=== PATIENT | male | born 1945 | race Caucasian/White ===

== ENCOUNTER 2022-02-27 08:29 | Emergency (ER) | payer MEDICARE, MEDICAID ==
[~2022-02-27] VITALS: Ht 175.3 cm; Wt 65.9 kg
[~2022-02-27 08:29] MED LIST: AZIT250T PO; FLUT16SP2 BOTHNARES
[2022-02-27 08:36] VITALS: BP 142/67
[2022-02-27] MEDS ORDERED: LIDOcaine 1% W/epiNEPHrine 1:200,000 10ml vial IJ ONE (09:10)
[2022-02-27] MEDS ORDERED: LIDOcaine 1% W/epiNEPHrine 1:100,000 20ml vial IJ ONE (09:20)
== END 2022-02-27 10:17 | disposition home or self-care (01) ==
LOC: ER 08:29
DX: L02.414 Cutaneous abscess of left upper limb (principal); Z79.2 Long term (current) use of antibiotics; Z79.899 Other long term (current) drug therapy
CPT/HCPCS: 10060; 99282; A6449

== ENCOUNTER 2023-11-02 09:24 | Inpatient (IN) | payer OTHER, MEDICARE, MEDICAID ==
[~2023-11-02] VITALS: Ht 172.7 cm; Wt 57.5 kg
[~2023-11-02 09:24] MED LIST changes: +ATEN50TA41 PO; -AZIT250T PO; +ESCI5TAB17 PO; -FLUT16SP2 BOTHNARES; +HYDR12.55 PO; +LORA-268 PO; +POTA10CA85 PO
[2023-11-02 11:49] LABS: BASOPHILS # (AUTO) 0.1 X10'3 (0-0.2); BASOPHILS % (AUTO) 0.7 % (0-1); EOSINOPHILS % (AUTO) 0 % (0-6); HEMATOCRIT 46.2 % (42.0-52.0); HEMOGLOBIN 15.7 g/dl (14.0-17.9); LYMPHOCYTES # (AUTO) 1.5 X10'3 (1.1-4.8); LYMPHOCYTES % (AUTO) 20.3 % (21-51); MEAN CORPUSCULAR HEMOGLOBIN 29.1 PG (27.0-31.0); MEAN CORPUSCULAR VOLUME 85.6 FL (78-98); MEAN PLATELET VOLUME 8.1 FL (7.4-10.4); MONOCYTES # (AUTO) 0.9 X10'3 (0-0.9); MONOCYTES % (AUTO) 12.8 % (2-12); NEUTROPHILS # (AUTO) 4.9 X10'3 (1.8-7.7); NEUTROPHILS % (AUTO) 66.2 % (42-75); PLATELET COUNT 283 X10'3 (140-440); RED CELL DISTRIBUTION WIDTH 14.6 % (11.5-14.5); WHITE BLOOD COUNT 7.4 X10'3 (4.5-11.0)
[2023-11-02 11:55] LABS: ALANINE AMINOTRANSFERASE 32 U/L (12-78); ALBUMIN 3.9 G/DL (3.4-5.0); ALBUMIN/GLOBULIN RATIO 0.9 (1.1-1.5); ALKALINE PHOSPHATASE 65 IU/L (46-116); ANION GAP 10 (8-16); ASPARTATE AMINO TRANSFERASE 13 U/L (10-37); BILIRUBIN,TOTAL 0.4 MG/DL (0.1-1.0); BLOOD UREA NITROGEN 31 MG/DL (7-18); BUN/CREATININE RATIO 22.1 (10.0-20.0); CALCIUM 8.6 MG/DL (8.5-10.1); CHLORIDE 99 MMOL/L (99-107); GLUCOSE 117 MG/DL (70-104); POTASSIUM 3.8 MMOL/L (3.5-5.1); SODIUM 137 MMOL/L (135-145); TOTAL CARBON DIOXIDE 27.7 MMOL/L (24-32); TOTAL PROTEIN 8.2 G/DL (6.4-8.2); eCRCL 41 ML/MIN; eGFR 49 ML/MIN
[2023-11-02 11:56] LABS: PROTHROMBIN TIME 10.3 SECONDS (9.0-12.0)
[2023-11-02 12:14] LABS: APTT 26 SECONDS (22-32)
[2023-11-02 13:06] LABS: BILIRUBIN,URINE NEGATIVE (Neg); CLARITY,URINE SLIGHTLY CLOUDY (Clear); COLOR,URINE YELLOW (Yellow); GLUCOSE, URINE NEGATIVE (Neg); KETONES,URINE NEGATIVE (Neg); LEUKOCYTE ESTERASE ,URINE NEGATIVE (Neg); NITRITES, URINE NEGATIVE (Neg); OCCULT BLOOD,URINE MODERATE (Neg); PROTEIN,URINE TRACE mg/dl (Neg); UROBILINOGEN,URINE 0.2 E.U/dL (0.2-1.0)
[2023-11-02 13:25] LABS: UA COLLECTION TYPE CLN CATCH MIDSTREAM
[2023-11-02 13:26] LABS: OCCULT BLOOD STOOL POSITIVE (Neg)
[2023-11-02 13:27] LABS: BACTERIA,URINE 1+ /HPF (Neg); COARSE GRANULAR CAST 0-3 /LPF (NEGATIVE); HYALINE CASTS 0-3 /LPF (NEGATIVE); MUCUS STRANDS NONE SEEN /LPF (Neg); RBC,URINE 0-2 /HPF (0-2); SQUAMOUS EPITHELIAL CELL,UR FEW /LPF (FEW); WBC,URINE 0-4 /HPF (0-4)
[2023-11-02] MEDS ORDERED: acetaminophen 325mg tablet PO PRN ×2 (13:50)
[2023-11-02] MEDS ORDERED: ondansetron/PF 4mg/2ml inj IV PRN (13:50)
[2023-11-02] MEDS ORDERED: potassium Cl 40MEQ/1/2NS 520ml 520 ML IV PRN (13:50)
[2023-11-02] MEDS ORDERED: magnesium 4gm in 100ml NS 100 ML IV PRN (13:50)
[2023-11-02] MEDS ORDERED: HYDROcodone/acetaminophen 5mg/325mg tablet PO PRN (13:50)
[2023-11-02] MEDS ORDERED: morphine 2 MG/ML inj. syringe IV PRN ×2 (13:50)
[2023-11-02] MEDS ORDERED: magnesium 2GM in 50ml NS 50 ML IV PRN (13:50)
[2023-11-02] MEDS ORDERED: HYDROcodone/acetaminophen 10/325mg tab PO PRN (13:50)
[2023-11-02] MEDS ORDERED: magnesium Cl slow-release 64mg tablet PO PRN (13:50)
[2023-11-02] MEDS: normal saline 1000ml 1,000 ML IV SCH (14:44)
[2023-11-02] MEDS: pantoprazole 40MG/NS 100ML BAG 100 ML IV SCH (16:31)
[2023-11-02] MEDS: nicotine 14mg patch - 24hr TD SCH (17:59)
[2023-11-02 19:21] VITALS: BP 162/91; PULSE 61; RESP 17; TEMP 97.1; O2SAT 99
[2023-11-02 20:30] VITALS: RESP 17
[2023-11-02 22:00] VITALS: BP 154/87; PULSE 64; RESP 16; TEMP 97.6; O2SAT 97
[2023-11-03] VITALS (11 sets, daily range): BP systolic 118–165; BP diastolic 65–87; PULSE 43–74; RESP 9–17; TEMP 97.4–98.6; O2SAT 93–98
[2023-11-03 07:47] LABS: BASOPHILS % (AUTO) 0.8 % (0-1); EOSINOPHILS % (AUTO) 0.1 % (0-6); HEMATOCRIT 39.2 % (42.0-52.0); HEMOGLOBIN 13.3 g/dl (14.0-17.9); LYMPHOCYTES # (AUTO) 1.3 X10'3 (1.1-4.8); LYMPHOCYTES % (AUTO) 24.8 % (21-51); MEAN CORPUSCULAR VOLUME 85.2 FL (78-98); MEAN PLATELET VOLUME 7.6 FL (7.4-10.4); MONOCYTES # (AUTO) 0.7 X10'3 (0-0.9); NEUTROPHILS # (AUTO) 3.2 X10'3 (1.8-7.7); NEUTROPHILS % (AUTO) 61.3 % (42-75); PLATELET COUNT 251 X10'3 (140-440); RED CELL DISTRIBUTION WIDTH 14.7 % (11.5-14.5); WHITE BLOOD COUNT 5.3 X10'3 (4.5-11.0)
[2023-11-03 08:07] LABS: ALANINE AMINOTRANSFERASE 25 U/L (12-78); ALBUMIN 3.2 G/DL (3.4-5.0); ALKALINE PHOSPHATASE 57 IU/L (46-116); ANION GAP 9 (8-16); ASPARTATE AMINO TRANSFERASE 12 U/L (10-37); BILIRUBIN,TOTAL 0.7 MG/DL (0.1-1.0); BLOOD UREA NITROGEN 27 MG/DL (7-18); BUN/CREATININE RATIO 23.9 (10.0-20.0); CALCIUM 7.6 MG/DL (8.5-10.1); CHLORIDE 103 MMOL/L (99-107); CREATININE 1.13 MG/DL (0.60-1.10); GLUCOSE 92 MG/DL (70-104); POTASSIUM 3.5 MMOL/L (3.5-5.1); SODIUM 139 MMOL/L (135-145); TOTAL CARBON DIOXIDE 26.6 MMOL/L (24-32); TOTAL PROTEIN 6.3 G/DL (6.4-8.2); eCRCL 44 ML/MIN; eGFR 63 ML/MIN
[2023-11-03] MEDS ORDERED: LIDOcaine Viscous 15ml cup ONE (12:48)
[2023-11-03] MEDS ORDERED: fentaNYL/PF 50MCG/1 ML 2ML syringe ONE (13:21)
[2023-11-03] MEDS ORDERED: MIDAZolam 1 MG/ML 5ML VIAL ONE (13:21)
[2023-11-03 15:37] LABS: MEAN CORPUSCULAR HEMOGLOBIN 28.9 PG (27.0-31.0); MONOCYTES # (AUTO) 0.7 X10'3 (0-0.9)
[2023-11-03 15:39] LABS: BASOPHILS % (AUTO) 0.7 % (0-1); EOSINOPHILS % (AUTO) 0.1 % (0-6); HEMATOCRIT 38.3 % (42.0-52.0); HEMOGLOBIN 12.9 g/dl (14.0-17.9); LYMPHOCYTES # (AUTO) 1.8 X10'3 (1.1-4.8); LYMPHOCYTES % (AUTO) 29.8 % (21-51); MEAN CORPUSCULAR HGB CONC 33.7 g/dL (33.0-36.5); MEAN CORPUSCULAR VOLUME 85.8 FL (78-98); MEAN PLATELET VOLUME 7.6 FL (7.4-10.4); MONOCYTES % (AUTO) 12.4 % (2-12); NEUTROPHILS # (AUTO) 3.4 X10'3 (1.8-7.7); PLATELET COUNT 239 X10'3 (140-440); RED BLOOD COUNT 4.46 X10'6 (4.70-6.10); RED CELL DISTRIBUTION WIDTH 14.6 % (11.5-14.5)
[2023-11-03] MEDS: pantoprazole 40 MG vial IV ONE (15:53)
[2023-11-03] MEDS: pantoprazole 40MG/NS 100ML BAG 100 ML IV SCH (15:58)
[2023-11-04 06:49] LABS: ALANINE AMINOTRANSFERASE 16 U/L (12-78); ALBUMIN 2.9 G/DL (3.4-5.0); ALBUMIN/GLOBULIN RATIO 0.9 (1.1-1.5); ALKALINE PHOSPHATASE 44 IU/L (46-116); ANION GAP 11 (8-16); ASPARTATE AMINO TRANSFERASE 6 U/L (10-37); BILIRUBIN,TOTAL 0.8 MG/DL (0.1-1.0); BLOOD UREA NITROGEN 19 MG/DL (7-18); BUN/CREATININE RATIO 20.2 (10.0-20.0); CALCIUM 7.6 MG/DL (8.5-10.1); CHLORIDE 106 MMOL/L (99-107); CREATININE 0.94 MG/DL (0.60-1.10); GLUCOSE 91 MG/DL (70-104); POTASSIUM 3.5 MMOL/L (3.5-5.1); SODIUM 142 MMOL/L (135-145); TOTAL CARBON DIOXIDE 25.5 MMOL/L (24-32); TOTAL PROTEIN 6.2 G/DL (6.4-8.2); eCRCL 53 ML/MIN; eGFR 78 ML/MIN
[2023-11-04 06:55] LABS: BASOPHILS % (AUTO) 0.9 % (0-1); EOSINOPHILS % (AUTO) 0.8 % (0-6); HEMATOCRIT 37.5 % (42.0-52.0); HEMOGLOBIN 12.5 g/dl (14.0-17.9); LYMPHOCYTES # (AUTO) 1.6 X10'3 (1.1-4.8); LYMPHOCYTES % (AUTO) 31.2 % (21-51); MEAN CORPUSCULAR HEMOGLOBIN 28.5 PG (27.0-31.0); MEAN CORPUSCULAR HGB CONC 33.4 g/dL (33.0-36.5); MEAN CORPUSCULAR VOLUME 85.4 FL (78-98); MEAN PLATELET VOLUME 7.6 FL (7.4-10.4); MONOCYTES # (AUTO) 0.7 X10'3 (0-0.9); MONOCYTES % (AUTO) 13.3 % (2-12); NEUTROPHILS # (AUTO) 2.7 X10'3 (1.8-7.7); NEUTROPHILS % (AUTO) 53.8 % (42-75); PLATELET COUNT 229 X10'3 (140-440); RED BLOOD COUNT 4.39 X10'6 (4.70-6.10); RED CELL DISTRIBUTION WIDTH 14.6 % (11.5-14.5); WHITE BLOOD COUNT 5.1 X10'3 (4.5-11.0)
[2023-11-04 07:00] VITALS: BP 131/89; PULSE 51; RESP 16; TEMP 97.6; O2SAT 97
[2023-11-04 09:30] VITALS: RESP 20; O2SAT 97
[2023-11-04 10:00] VITALS: BP 158/90; PULSE 68; RESP 15; TEMP 98.4; O2SAT 96
[2023-11-04] MEDS: HYDROchlorothiazide 12.5mg capsule PO SCH (14:15)
[2023-11-04 17:43] LABS: HBSAG SCREEN Negative (Negative); HEP B CORE AB, IGM Negative (Negative); HEP B CORE AB, TOT Negative (Negative)
[2023-11-04 18:00] VITALS: BP 178/89; PULSE 51; RESP 15; TEMP 97.7; O2SAT 96
[2023-11-04 20:00] VITALS: RESP 15; O2SAT 96
[2023-11-04 22:00] VITALS: BP 179/88; PULSE 65; RESP 18; TEMP 98.6; O2SAT 96
[2023-11-05 06:00] VITALS: BP 169/99; PULSE 56; RESP 20; TEMP 98.7; O2SAT 99
[2023-11-05 06:58] LABS: BASOPHILS % (AUTO) 1.1 % (0-1); EOSINOPHILS # (AUTO) 0.1 X10'3 (0-0.9); EOSINOPHILS % (AUTO) 1.9 % (0-6); HEMATOCRIT 37.1 % (42.0-52.0); HEMOGLOBIN 12.8 g/dl (14.0-17.9); LYMPHOCYTES # (AUTO) 1.4 X10'3 (1.1-4.8); MEAN CORPUSCULAR HEMOGLOBIN 29.3 PG (27.0-31.0); MEAN CORPUSCULAR HGB CONC 34.4 g/dL (33.0-36.5); MEAN PLATELET VOLUME 7.8 FL (7.4-10.4); MONOCYTES # (AUTO) 0.7 X10'3 (0-0.9); MONOCYTES % (AUTO) 14.4 % (2-12); NEUTROPHILS # (AUTO) 2.4 X10'3 (1.8-7.7); NEUTROPHILS % (AUTO) 51.6 % (42-75); PLATELET COUNT 218 X10'3 (140-440); RED BLOOD COUNT 4.36 X10'6 (4.70-6.10); RED CELL DISTRIBUTION WIDTH 14.7 % (11.5-14.5); WHITE BLOOD COUNT 4.6 X10'3 (4.5-11.0)
[2023-11-05 07:44] LABS: ALANINE AMINOTRANSFERASE 19 U/L (12-78); ALKALINE PHOSPHATASE 49 IU/L (46-116); ANION GAP 7 (8-16); ASPARTATE AMINO TRANSFERASE 9 U/L (10-37); BILIRUBIN,TOTAL 0.8 MG/DL (0.1-1.0); BLOOD UREA NITROGEN 11 MG/DL (7-18); BUN/CREATININE RATIO 11.2 (10.0-20.0); CALCIUM 7.7 MG/DL (8.5-10.1); CHLORIDE 104 MMOL/L (99-107); CREATININE 0.98 MG/DL (0.60-1.10); GLUCOSE 102 MG/DL (70-104); POTASSIUM 3.3 MMOL/L (3.5-5.1); SODIUM 140 MMOL/L (135-145); TOTAL CARBON DIOXIDE 28.7 MMOL/L (24-32); eCRCL 51 ML/MIN; eGFR 74 ML/MIN
[2023-11-05 08:30] VITALS: RESP 16; O2SAT 98
[2023-11-05 10:00] VITALS: BP 142/78; PULSE 68; RESP 18; TEMP 98.3; O2SAT 99
[2023-11-05] MEDS: potassium Cl 20 mEq SR tablet PO PRN ×2 (11:12→12:48)
[2023-11-05] MEDS ORDERED: NICO-631 TD (12:01)
[2023-11-05] MEDS ORDERED: LOSA50TA64 PO (12:02)
[2023-11-05] MEDS ORDERED: PANT40TA54 PO (12:04)
== END 2023-11-05 13:45 | disposition home or self-care (01) | DRG 377 ==
LOC: ER 09:24 → ED HOLD 13:55 → EDBEDREQ 16:26 → ORTHO 4S 19:15
PROVIDERS: ADMIT Internal Medicine; ATTEND Internal Medicine
PROC: 0DB98ZX Excision of Duodenum, Via Natural or Artificial Opening Endoscopic, Diagnostic (ICD-10-PCS; principal; 2023-11-03)
PROC: 0DB68ZX Excision of Stomach, Via Natural or Artificial Opening Endoscopic, Diagnostic (ICD-10-PCS; 2023-11-03)
PROC: 0DB48ZX Excision of Esophagogastric Junction, Via Natural or Artificial Opening Endoscopic, Diagnostic (ICD-10-PCS; 2023-11-03)
DX: K29.01 Acute gastritis with bleeding (principal); I50.31 Acute diastolic (congestive) heart failure; N17.0 Acute kidney failure with tubular necrosis; I11.0 Hypertensive heart disease with heart failure; F32.A Depression, unspecified; K44.9 Diaphragmatic hernia without obstruction or gangrene; F17.210 Nicotine dependence, cigarettes, uncomplicated; K21.01 Gastro-esophageal reflux disease with esophagitis, with bleeding; F41.9 Anxiety disorder, unspecified; K26.4 Chronic or unspecified duodenal ulcer with hemorrhage; T39.395A Adverse effect of other nonsteroidal anti-inflammatory drugs [NSAID], initial encounter; K59.00 Constipation, unspecified; Y92.89 Other specified places as the place of occurrence of the external cause; Z79.899 Other long term (current) drug therapy; Z71.6 Tobacco abuse counseling
CPT/HCPCS: 36415; 43239; 71045; 74176; 80053; 81001; 82272; 85025; 85610; 85730; 86704; 86705; 86885; 86900; 86901; 87081; 87340; 93005; 97161; 97530; 99152; 99291; A4620; C9113; G0378; J2250; J3010; J7030

== ENCOUNTER 2023-11-26 08:09 | Emergency (ER) | payer OTHER, MEDICARE, MEDICAID ==
[~2023-11-26] VITALS: Ht 175.3 cm; Wt 59.0 kg
[~2023-11-26 08:09] MED LIST changes: -HYDR12.55 PO; +LOSA50TA64 PO; +NICO-631 TD; +PANT40TA54 PO; -POTA10CA85 PO
[2023-11-26 08:23] VITALS: TEMP 98.6
[2023-11-26 08:48] LABS: ALANINE AMINOTRANSFERASE 48 U/L (12-78); ALBUMIN 3.6 G/DL (3.4-5.0); ALBUMIN/GLOBULIN RATIO 0.9 (1.1-1.5); ALKALINE PHOSPHATASE 80 IU/L (46-116); ANION GAP 10 (8-16); ASPARTATE AMINO TRANSFERASE 14 U/L (10-37); BILIRUBIN,TOTAL 0.5 MG/DL (0.1-1.0); BLOOD UREA NITROGEN 20 MG/DL (7-18); BUN/CREATININE RATIO 16.4 (10.0-20.0); CALCIUM 8.8 MG/DL (8.5-10.1); CHLORIDE 103 MMOL/L (99-107); CREATININE 1.22 MG/DL (0.60-1.10); GLUCOSE 158 MG/DL (70-104); POTASSIUM 3.7 MMOL/L (3.5-5.1); SODIUM 142 MMOL/L (135-145); TOTAL PROTEIN 7.6 G/DL (6.4-8.2); eCRCL 42 ML/MIN; eGFR 57 ML/MIN
[2023-11-26 08:50] LABS: BASOPHILS # (AUTO) 0.1 X10'3 (0-0.2); BASOPHILS % (AUTO) 1.4 % (0-1); EOSINOPHILS # (AUTO) 0.5 X10'3 (0-0.9); EOSINOPHILS % (AUTO) 5.7 % (0-6); HEMATOCRIT 40.8 % (42.0-52.0); LYMPHOCYTES # (AUTO) 2.5 X10'3 (1.1-4.8); LYMPHOCYTES % (AUTO) 27.3 % (21-51); MEAN CORPUSCULAR HEMOGLOBIN 29.3 PG (27.0-31.0); MEAN CORPUSCULAR HGB CONC 34.4 g/dL (33.0-36.5); MEAN CORPUSCULAR VOLUME 85.3 FL (78-98); MEAN PLATELET VOLUME 7.5 FL (7.4-10.4); MONOCYTES # (AUTO) 0.7 X10'3 (0-0.9); MONOCYTES % (AUTO) 8.1 % (2-12); NEUTROPHILS # (AUTO) 5.3 X10'3 (1.8-7.7); NEUTROPHILS % (AUTO) 57.5 % (42-75); PLATELET COUNT 333 X10'3 (140-440); RED BLOOD COUNT 4.78 X10'6 (4.70-6.10); RED CELL DISTRIBUTION WIDTH 15.3 % (11.5-14.5); WHITE BLOOD COUNT 9.2 X10'3 (4.5-11.0)
[2023-11-26] MEDS: normal saline 1000ML IV soln IVB ONE (10:52)
[2023-11-26 12:39] VITALS: BP 199/97; PULSE 56; RESP 16; O2SAT 97
== END 2023-11-26 12:41 | disposition home or self-care (01) ==
LOC: ER 08:09
DX: J11.1 Influenza due to unidentified influenza virus with other respiratory manifestations (principal); Z20.822 Contact with and (suspected) exposure to COVID-19; I11.0 Hypertensive heart disease with heart failure; I50.9 Heart failure, unspecified; F12.90 Cannabis use, unspecified, uncomplicated; Z79.899 Other long term (current) drug therapy
CPT/HCPCS: 36415; 71045; 80053; 84484; 85025; 87502; 87503; 87811; 93005; 96360; 96361; 99285; J7030

== ENCOUNTER 2023-12-03 11:23 | Emergency (ER) | payer OTHER, MEDICARE, MEDICAID ==
[~2023-12-03] VITALS: Ht 172.7 cm; Wt 65.9 kg
[2023-12-03 11:26] VITALS: PULSE 62; RESP 16; TEMP 98; O2SAT 97
[2023-12-03 11:48] VITALS: BP 169/86
[2023-12-03] MEDS ORDERED: LOSA50TA64 PO (11:50)
== END 2023-12-03 12:04 | disposition home or self-care (01) ==
LOC: ER 11:23
DX: I11.0 Hypertensive heart disease with heart failure (principal); I50.9 Heart failure, unspecified; Z76.0 Encounter for issue of repeat prescription; F41.9 Anxiety disorder, unspecified; F12.90 Cannabis use, unspecified, uncomplicated
CPT/HCPCS: 99281

== ENCOUNTER 2024-11-14 08:18 | Inpatient (IN) | payer OTHER, MEDICARE, MEDICAID ==
[~2024-11-14] VITALS: Ht 172.7 cm; Wt 76.0 kg
[2024-11-14] MEDS ORDERED: morphine 2 MG/ML inj. syringe IV PRN (08:30)
[2024-11-14 08:51] LABS: BASOPHILS # (AUTO) 0.1 X10'3 (0-0.2); BASOPHILS % (AUTO) 0.7 % (0-1); EOSINOPHILS % (AUTO) 0.2 % (0-6); HEMATOCRIT 46.4 % (42.0-52.0); HEMOGLOBIN 15.7 g/dl (14.0-17.9); LYMPHOCYTES # (AUTO) 1.1 X10'3 (1.1-4.8); LYMPHOCYTES % (AUTO) 6.4 % (21-51); MEAN CORPUSCULAR HEMOGLOBIN 28.9 PG (27.0-31.0); MEAN CORPUSCULAR HGB CONC 33.8 g/dL (33.0-36.5); MEAN CORPUSCULAR VOLUME 85.6 FL (78-98); MEAN PLATELET VOLUME 7.7 FL (7.4-10.4); MONOCYTES # (AUTO) 0.8 X10'3 (0-0.9); NEUTROPHILS # (AUTO) 14.6 X10'3 (1.8-7.7); NEUTROPHILS % (AUTO) 87.7 % (42-75); PLATELET COUNT 357 X10'3 (140-440); RED BLOOD COUNT 5.43 X10'6 (4.70-6.10); RED CELL DISTRIBUTION WIDTH 14.3 % (11.5-14.5); WHITE BLOOD COUNT 16.6 X10'3 (4.5-11.0)
[2024-11-14 09:03] LABS: PROTHROMBIN TIME 10.3 SECONDS (9.0-12.0)
[2024-11-14 09:05] LABS: ALBUMIN 4.2 G/DL (3.4-5.0); ANION GAP 10 (8-16); BILIRUBIN,DIRECT 0.2 MG/DL (0-0.3); BILIRUBIN,TOTAL 0.8 MG/DL (0.1-1.0); BLOOD UREA NITROGEN 18 MG/DL (7-18); BUN/CREATININE RATIO 16.2 (10.0-20.0); CHLORIDE 100 MMOL/L (99-107); CREATININE 1.11 MG/DL (0.60-1.10); GLUCOSE 145 MG/DL (70-104); MAGNESIUM 1.8 MG/DL (1.5-2.4); POTASSIUM 4.3 MMOL/L (3.5-5.1); SODIUM 135 MMOL/L (135-145); TOTAL CARBON DIOXIDE 24.7 MMOL/L (24-32); TOTAL PROTEIN 8.6 G/DL (6.4-8.2); eCRCL 38 ML/MIN; eGFR 64 ML/MIN
[2024-11-14 09:06] LABS: ALANINE AMINOTRANSFERASE 16 U/L (12-78); ALKALINE PHOSPHATASE 101 IU/L (46-116); ASPARTATE AMINO TRANSFERASE 6 U/L (10-37); LIPASE 36 U/L (16-77)
[2024-11-14 09:26] LABS: APTT 26 SECONDS (22-32)
[2024-11-14 09:42] LABS: BILIRUBIN,URINE NEGATIVE (Neg); CLARITY,URINE CLEAR (Clear); COLOR,URINE YELLOW (Yellow); GLUCOSE, URINE NEGATIVE (Neg); KETONES,URINE NEGATIVE (Neg); LEUKOCYTE ESTERASE ,URINE NEGATIVE (Neg); NITRITES, URINE NEGATIVE (Neg); OCCULT BLOOD,URINE LARGE (Neg); PROTEIN,URINE TRACE mg/dl (Neg); UROBILINOGEN,URINE 0.2 E.U/dL (0.2-1.0)
[2024-11-14] MEDS: metoclopramide 5 mg/ml inj IV ONE (09:42)
[2024-11-14 09:47] LABS: UA COLLECTION TYPE FOLEY CATH
[2024-11-14 09:49] LABS: BACTERIA,URINE FEW /HPF (Neg); MUCUS STRANDS FEW /LPF (Neg); SQUAMOUS EPITHELIAL CELL,UR FEW /LPF (FEW)
[2024-11-14] MEDS: CefTRIAXone 2gm/D5W 50ml BAG 50 ML IV ONE (10:12)
[2024-11-14] MEDS ORDERED: mag hydrox/Alum hydrox/simeth 30ml oral suspension PO PRN (14:50)
[2024-11-14] MEDS ORDERED: magnesium hydroxide 30ml (MOM) UD suspension PO PRN (14:50)
[2024-11-14] MEDS ORDERED: acetaminophen 650mg rectal suppository RC PRN (14:50)
[2024-11-14] MEDS ORDERED: ondansetron/PF 4mg/2ml inj IV PRN (14:50)
[2024-11-14] MEDS ORDERED: magnesium sulf-water 2g/50mL 50 ML IV PRN (14:50)
[2024-11-14] MEDS ORDERED: potassium Cl 20 mEq SR tablet PO PRN ×2 (14:50)
[2024-11-14] MEDS ORDERED: magnesium Cl slow-release 64mg tablet PO PRN (14:50)
[2024-11-14] MEDS ORDERED: magnesium sulf-water 4G/100mL 100 ML IV PRN (14:50)
[2024-11-14] MEDS ORDERED: diphenhydrAMINE 25mg capsule PO PRN (14:50)
[2024-11-14] MEDS: PERFLUTREN PROTEIN-A MICROSPHR (Optison) 0.22 MG/ML 3ML VIAL IV ONE (14:50)
[2024-11-14] MEDS ORDERED: potassium Cl 40MEQ/1/2NS 520ml 520 ML IV PRN (14:50)
[2024-11-14] MEDS ORDERED: ondansetron 4mg rapidly disintigrating tab PO PRN (14:50)
[2024-11-14] MEDS ORDERED: bisacodyl 10mg suppository rectal RC PRN (14:50)
[2024-11-14] MEDS ORDERED: acetaminophen 325mg tablet PO PRN ×2 (14:50)
[2024-11-14] MEDS ORDERED: iohexol 350MG/ML 100ml bottle IV ONE (14:55)
[2024-11-14 15:59] LABS: HEMOGLOBIN A1C 6.2 % (4.5-6.2)
[2024-11-14] MEDS: atorvastatin 20mg tablet PO SCH (16:45)
[2024-11-14] MEDS: aspirin 325mg tablet PO ONE (16:45)
[2024-11-14] MEDS: normal saline 1000ml 1,000 ML IV SCH (16:46)
[2024-11-14] MEDS: normal saline 1000ml 1,000 ML IV ONE (16:51)
[2024-11-14] MEDS ORDERED: nicotine 21mg patch - 24 hr TD SCH (19:45)
[2024-11-14] MEDS: K and/or MAG REPLACEMENT MC SCH (20:00)
[2024-11-14] MEDS: docusate sod 100mg capsule PO SCH (20:00)
[2024-11-14 20:18] LABS: CHOL/HDL RATIO 3.9 (0.00-4.99); CHOLESTEROL 166 MG/DL (0-200); HDL CHOLESTEROL 43 MG/DL (35-60); LDL CHOLESTEROL 116 MG/DL (50-100); TRIGLYCERIDES 57 MG/DL (20-135)
[2024-11-14] MEDS: heparin, porcine 5000 units/ml vial SQ SCH (21:47)
[2024-11-14] MEDS: tamsulosin 0.4mg capsule PO SCH (21:47)
[2024-11-15] VITALS (9 sets, daily range): BP systolic 127–186; BP diastolic 62–93; PULSE 54–94; RESP 14–20; TEMP 97.9–98.9; O2SAT 95–98
[2024-11-15 03:37] LABS: BASOPHILS # (AUTO) 0.1 X10'3 (0-0.2); BASOPHILS % (AUTO) 1.2 % (0-1); EOSINOPHILS # (AUTO) 0.2 X10'3 (0-0.9); EOSINOPHILS % (AUTO) 1.5 % (0-6); HEMATOCRIT 40.3 % (42.0-52.0); HEMOGLOBIN 13.2 g/dl (14.0-17.9); LYMPHOCYTES # (AUTO) 2.2 X10'3 (1.1-4.8); LYMPHOCYTES % (AUTO) 18.6 % (21-51); MEAN CORPUSCULAR HEMOGLOBIN 28.5 PG (27.0-31.0); MEAN CORPUSCULAR HGB CONC 32.8 g/dL (33.0-36.5); MEAN CORPUSCULAR VOLUME 86.9 FL (78-98); MONOCYTES # (AUTO) 1.1 X10'3 (0-0.9); MONOCYTES % (AUTO) 9.7 % (2-12); PLATELET COUNT 297 X10'3 (140-440); RED BLOOD COUNT 4.64 X10'6 (4.70-6.10); RED CELL DISTRIBUTION WIDTH 14.5 % (11.5-14.5); WHITE BLOOD COUNT 11.6 X10'3 (4.5-11.0)
[2024-11-15 03:57] LABS: ALBUMIN 3.1 G/DL (3.4-5.0); ANION GAP 8 (8-16); BLOOD UREA NITROGEN 24 MG/DL (7-18); BUN/CREATININE RATIO 21.4 (10.0-20.0); CALCIUM 8.3 MG/DL (8.5-10.1); CHLORIDE 105 MMOL/L (99-107); CHOLESTEROL 165 MG/DL (0-200); CREATININE 1.12 MG/DL (0.60-1.10); GLUCOSE 108 MG/DL (70-104); HDL CHOLESTEROL 41 MG/DL (35-60); LDL CHOLESTEROL 115 MG/DL (50-100); MAGNESIUM 1.7 MG/DL (1.5-2.4); PHOSPHORUS 3.2 MG/DL (2.3-4.5); POTASSIUM 3.9 MMOL/L (3.5-5.1); SODIUM 141 MMOL/L (135-145); TOTAL CARBON DIOXIDE 27.6 MMOL/L (24-32); TRIGLYCERIDES 83 MG/DL (20-135); eCRCL 38 ML/MIN; eGFR 63 ML/MIN
[2024-11-15] MEDS: aspirin 81mg tab.chew PO SCH (08:28)
[2024-11-15] MEDS: pantoprazole 40mg Tablet.DR PO SCH (08:28)
[2024-11-15] MEDS: CefTRIAXone/D5W-Rocephin 1gm 50 ML IV SCH (08:28)
[2024-11-15] MEDS: nicotine 21mg patch - 24 hr TD SCH (08:32)
[2024-11-15] MEDS: losartan 50mg tablet PO SCH (10:42)
[2024-11-15] MEDS ORDERED: iohexol 350MG/ML 100ml bottle IV ONE (13:30)
[2024-11-15] MEDS ORDERED: iohexol 350 MG/ML 50ML vial IV ONE (13:30)
[2024-11-15] MEDS ORDERED: aminophylline 500mg/20ml vial IV PRN (20:55)
[2024-11-15] MEDS ORDERED: metoprolol tartrate 1mg/ml inj IV PRN (20:55)
[2024-11-15] MEDS ORDERED: nitroGLYCERIN 0.4mg SUBLingual tab SL PRN (20:55)
[2024-11-15] MEDS: atenolol 50mg tablet PO ONE (21:35)
[2024-11-15] MEDS: clopidogrel 75mg tablet PO ONE (21:36)
[2024-11-16] VITALS (12 sets, daily range): BP systolic 141–171; BP diastolic 66–83; PULSE 48–75; RESP 12–20; TEMP 97.8–99.8; O2SAT 96–99
[2024-11-16 06:43] LABS: ALBUMIN 3.1 G/DL (3.4-5.0); ANION GAP 9 (8-16); BLOOD UREA NITROGEN 19 MG/DL (7-18); BUN/CREATININE RATIO 18.1 (10.0-20.0); CALCIUM 8.5 MG/DL (8.5-10.1); CHLORIDE 105 MMOL/L (99-107); CREATININE 1.05 MG/DL (0.60-1.10); GLUCOSE 123 MG/DL (70-104); MAGNESIUM 1.7 MG/DL (1.5-2.4); POTASSIUM 4.2 MMOL/L (3.5-5.1); SODIUM 140 MMOL/L (135-145); TOTAL CARBON DIOXIDE 26.4 MMOL/L (24-32); eCRCL 55 ML/MIN; eGFR 68 ML/MIN
[2024-11-16 06:55] LABS: BASOPHILS # (AUTO) 0.1 X10'3 (0-0.2); BASOPHILS % (AUTO) 1.1 % (0-1); EOSINOPHILS # (AUTO) 0.2 X10'3 (0-0.9); EOSINOPHILS % (AUTO) 2.5 % (0-6); HEMATOCRIT 41.2 % (42.0-52.0); HEMOGLOBIN 13.6 g/dl (14.0-17.9); LYMPHOCYTES % (AUTO) 21.3 % (21-51); MEAN CORPUSCULAR HGB CONC 32.9 g/dL (33.0-36.5); MEAN CORPUSCULAR VOLUME 87.9 FL (78-98); MONOCYTES % (AUTO) 10.2 % (2-12); NEUTROPHILS # (AUTO) 6.1 X10'3 (1.8-7.7); NEUTROPHILS % (AUTO) 64.9 % (42-75); PLATELET COUNT 266 X10'3 (140-440); RED BLOOD COUNT 4.68 X10'6 (4.70-6.10); RED CELL DISTRIBUTION WIDTH 14.4 % (11.5-14.5); WHITE BLOOD COUNT 9.4 X10'3 (4.5-11.0)
[2024-11-16] MEDS ORDERED: metoprolol tartrate 1mg/ml inj IV PRN (08:00)
[2024-11-16] MEDS: atorvastatin 20mg tablet PO SCH (08:25)
[2024-11-16] MEDS: atenolol 50mg tablet PO SCH (08:25)
[2024-11-16] MEDS: clopidogrel 75mg tablet PO SCH (08:26)
[2024-11-16] MEDS: regadenoson 0.4mg/5ml syringe IV PRN (10:56)
[2024-11-17 06:00] VITALS: BP 164/80; PULSE 58; RESP 16; TEMP 98.5; O2SAT 97
[2024-11-17 06:22] LABS: BASOPHILS # (AUTO) 0.1 X10'3 (0-0.2); BASOPHILS % (AUTO) 1.2 % (0-1); EOSINOPHILS # (AUTO) 0.3 X10'3 (0-0.9); EOSINOPHILS % (AUTO) 4.4 % (0-6); HEMATOCRIT 39.8 % (42.0-52.0); HEMOGLOBIN 13.4 g/dl (14.0-17.9); LYMPHOCYTES # (AUTO) 1.9 X10'3 (1.1-4.8); LYMPHOCYTES % (AUTO) 25.9 % (21-51); MEAN CORPUSCULAR HEMOGLOBIN 29.1 PG (27.0-31.0); MEAN CORPUSCULAR HGB CONC 33.6 g/dL (33.0-36.5); MEAN CORPUSCULAR VOLUME 86.6 FL (78-98); MEAN PLATELET VOLUME 8.1 FL (7.4-10.4); MONOCYTES # (AUTO) 0.8 X10'3 (0-0.9); MONOCYTES % (AUTO) 10.4 % (2-12); NEUTROPHILS # (AUTO) 4.3 X10'3 (1.8-7.7); NEUTROPHILS % (AUTO) 58.1 % (42-75); PLATELET COUNT 270 X10'3 (140-440); RED BLOOD COUNT 4.59 X10'6 (4.70-6.10); RED CELL DISTRIBUTION WIDTH 14.1 % (11.5-14.5); WHITE BLOOD COUNT 7.4 X10'3 (4.5-11.0)
[2024-11-17 06:32] LABS: ALBUMIN 3.1 G/DL (3.4-5.0); ANION GAP 6 (8-16); BLOOD UREA NITROGEN 15 MG/DL (7-18); BUN/CREATININE RATIO 15.6 (10.0-20.0); CALCIUM 8.4 MG/DL (8.5-10.1); CHLORIDE 105 MMOL/L (99-107); CREATININE 0.96 MG/DL (0.60-1.10); GLUCOSE 103 MG/DL (70-104); MAGNESIUM 1.6 MG/DL (1.5-2.4); PHOSPHORUS 3.5 MG/DL (2.3-4.5); POTASSIUM 4.3 MMOL/L (3.5-5.1); SODIUM 142 MMOL/L (135-145); TOTAL CARBON DIOXIDE 31.3 MMOL/L (24-32); eCRCL 60 ML/MIN; eGFR 76 ML/MIN
[2024-11-17 08:00] VITALS: RESP 18; O2SAT 95
[2024-11-17 10:00] VITALS: BP 142/81; PULSE 65; RESP 16; TEMP 98.3; O2SAT 96
[2024-11-17] MEDS: HYDROcodone/acetaminophen 5mg/325mg tablet PO PRN (13:35)
[2024-11-17 13:40] VITALS: BP_SYST 140; BP_SYST 157; BP_SYST 160; BP_DIAS 81; BP_DIAS 84; PULSE 63; PULSE 65
[2024-11-17 19:00] VITALS: BP 166/70; PULSE 63; RESP 16; TEMP 98; O2SAT 98
[2024-11-17 22:00] VITALS: BP 168/105; PULSE 63; RESP 16; TEMP 97.6; O2SAT 98
[2024-11-18] VITALS (8 sets, daily range): BP systolic 108–170; BP diastolic 67–92; PULSE 51–95; RESP 16–18; TEMP 97.6–98.9; O2SAT 95–96
[2024-11-18] MEDS: losartan 25mg tablet PO SCH (00:14)
[2024-11-18 06:49] LABS: BASOPHILS # (AUTO) 0.1 X10'3 (0-0.2); BASOPHILS % (AUTO) 1.1 % (0-1); EOSINOPHILS # (AUTO) 0.4 X10'3 (0-0.9); EOSINOPHILS % (AUTO) 4.2 % (0-6); HEMATOCRIT 40.4 % (42.0-52.0); HEMOGLOBIN 13.6 g/dl (14.0-17.9); LYMPHOCYTES # (AUTO) 2.8 X10'3 (1.1-4.8); MEAN CORPUSCULAR HEMOGLOBIN 29.1 PG (27.0-31.0); MEAN CORPUSCULAR HGB CONC 33.7 g/dL (33.0-36.5); MEAN CORPUSCULAR VOLUME 86.4 FL (78-98); MONOCYTES # (AUTO) 0.7 X10'3 (0-0.9); NEUTROPHILS # (AUTO) 4.3 X10'3 (1.8-7.7); NEUTROPHILS % (AUTO) 52.7 % (42-75); PLATELET COUNT 311 X10'3 (140-440); RED BLOOD COUNT 4.68 X10'6 (4.70-6.10); RED CELL DISTRIBUTION WIDTH 14.2 % (11.5-14.5); WHITE BLOOD COUNT 8.3 X10'3 (4.5-11.0)
[2024-11-18 07:17] LABS: ALBUMIN 3.5 G/DL (3.4-5.0); ANION GAP 8 (8-16); BLOOD UREA NITROGEN 16 MG/DL (7-18); BUN/CREATININE RATIO 15.7 (10.0-20.0); CALCIUM 8.6 MG/DL (8.5-10.1); CHLORIDE 101 MMOL/L (99-107); CREATININE 1.02 MG/DL (0.60-1.10); GLUCOSE 116 MG/DL (70-104); MAGNESIUM 1.7 MG/DL (1.5-2.4); PHOSPHORUS 3.9 MG/DL (2.3-4.5); POTASSIUM 3.4 MMOL/L (3.5-5.1); SODIUM 137 MMOL/L (135-145); TOTAL CARBON DIOXIDE 27.8 MMOL/L (24-32); eCRCL 57 ML/MIN; eGFR 70 ML/MIN
[2024-11-18] MEDS: potassium Cl 20 mEq SR tablet PO STA (10:43)
[2024-11-19] MEDS: HYDROcodone/acetaminophen 10/325mg tab PO PRN (05:59)
[2024-11-19 06:00] VITALS: BP 135/74; PULSE 55; RESP 15; TEMP 97.5; O2SAT 95
[2024-11-19 06:27] LABS: BASOPHILS # (AUTO) 0.1 X10'3 (0-0.2); BASOPHILS % (AUTO) 1.4 % (0-1); EOSINOPHILS # (AUTO) 0.3 X10'3 (0-0.9); HEMATOCRIT 40.2 % (42.0-52.0); HEMOGLOBIN 13.4 g/dl (14.0-17.9); LYMPHOCYTES # (AUTO) 2.1 X10'3 (1.1-4.8); LYMPHOCYTES % (AUTO) 25.3 % (21-51); MEAN CORPUSCULAR HEMOGLOBIN 29.1 PG (27.0-31.0); MEAN CORPUSCULAR HGB CONC 33.4 g/dL (33.0-36.5); MEAN CORPUSCULAR VOLUME 87.2 FL (78-98); MEAN PLATELET VOLUME 7.9 FL (7.4-10.4); MONOCYTES # (AUTO) 0.7 X10'3 (0-0.9); NEUTROPHILS % (AUTO) 60.3 % (42-75); PLATELET COUNT 302 X10'3 (140-440); RED BLOOD COUNT 4.61 X10'6 (4.70-6.10); RED CELL DISTRIBUTION WIDTH 14.3 % (11.5-14.5); WHITE BLOOD COUNT 8.3 X10'3 (4.5-11.0)
[2024-11-19 06:37] LABS: ALBUMIN 3.3 G/DL (3.4-5.0); ANION GAP 7 (8-16); BLOOD UREA NITROGEN 15 MG/DL (7-18); BUN/CREATININE RATIO 14.9 (10.0-20.0); CALCIUM 8.6 MG/DL (8.5-10.1); CHLORIDE 103 MMOL/L (99-107); CREATININE 1.01 MG/DL (0.60-1.10); GLUCOSE 108 MG/DL (70-104); MAGNESIUM 1.6 MG/DL (1.5-2.4); PHOSPHORUS 3.7 MG/DL (2.3-4.5); POTASSIUM 3.9 MMOL/L (3.5-5.1); SODIUM 141 MMOL/L (135-145); eCRCL 57 ML/MIN; eGFR 71 ML/MIN
[2024-11-19] MEDS: clopidogrel 75mg tablet PO SCH (07:12)
[2024-11-19 08:00] VITALS: RESP 15; O2SAT 96
[2024-11-19 10:00] VITALS: BP_SYST 118; BP_SYST 132; BP_SYST 148; BP_DIAS 71; BP_DIAS 82; BP_DIAS 87; PULSE 57; PULSE 62; PULSE 66
[2024-11-19] MEDS ORDERED: CLOP75TA34 PO (12:18)
[2024-11-19] MEDS ORDERED: ATOR80TA13 PO (12:18)
[2024-11-19] MEDS ORDERED: tamsulosin capsule PO (12:18)
[2024-11-19] MEDS ORDERED: ASPI81TA53 PO (12:18)
== END 2024-11-19 13:13 | disposition home health service (06) | DRG 68 ==
LOC: ER 08:19 → ED HOLD 14:50 → EDBEDREQ 11-15 05:26 → ORTHO 4S 11-15 16:35
PROVIDERS: ADMIT Family Medicine; ATTEND Family Medicine
PROC: B3251ZZ Computerized Tomography (CT Scan) of Bilateral Common Carotid Arteries using Low Osmolar Contrast (ICD-10-PCS; principal; 2024-11-14)
PROC: B32G1ZZ Computerized Tomography (CT Scan) of Bilateral Vertebral Arteries using Low Osmolar Contrast (ICD-10-PCS; 2024-11-14)
PROC: B32R1ZZ Computerized Tomography (CT Scan) of Intracranial Arteries using Low Osmolar Contrast (ICD-10-PCS; 2024-11-14)
PROC: B3281ZZ Computerized Tomography (CT Scan) of Bilateral Internal Carotid Arteries using Low Osmolar Contrast (ICD-10-PCS; 2024-11-14)
PROC: 4A02XM4 Measurement of Cardiac Total Activity, External Approach (ICD-10-PCS; 2024-11-15)
PROC: 3E033HZ Introduction of Radioactive Substance into Peripheral Vein, Percutaneous Approach (ICD-10-PCS; 2024-11-15)
PROC: B4201ZZ Computerized Tomography (CT Scan) of Abdominal Aorta using Low Osmolar Contrast (ICD-10-PCS; 2024-11-15)
PROC: B4241ZZ Computerized Tomography (CT Scan) of Superior Mesenteric Artery using Low Osmolar Contrast (ICD-10-PCS; 2024-11-15)
PROC: B4281ZZ Computerized Tomography (CT Scan) of Bilateral Renal Arteries using Low Osmolar Contrast (ICD-10-PCS; 2024-11-15)
PROC: B42H1ZZ Computerized Tomography (CT Scan) of Bilateral Lower Extremity Arteries using Low Osmolar Contrast (ICD-10-PCS; 2024-11-15)
PROC: B4211ZZ Computerized Tomography (CT Scan) of Celiac Artery using Low Osmolar Contrast (ICD-10-PCS; 2024-11-15)
PROC: B42H1ZZ Computerized Tomography (CT Scan) of Bilateral Lower Extremity Arteries using Low Osmolar Contrast (ICD-10-PCS; 2024-11-15)
DX: I65.23 Occlusion and stenosis of bilateral carotid arteries (principal); I11.0 Hypertensive heart disease with heart failure; I73.9 Peripheral vascular disease, unspecified; I50.9 Heart failure, unspecified; F07.81 Postconcussional syndrome; N40.1 Benign prostatic hyperplasia with lower urinary tract symptoms; R33.8 Other retention of urine; Z60.2 Problems related to living alone; F32.A Depression, unspecified; R31.9 Hematuria, unspecified; F41.9 Anxiety disorder, unspecified; F17.210 Nicotine dependence, cigarettes, uncomplicated; Z87.11 Personal history of peptic ulcer disease; Z79.899 Other long term (current) drug therapy
CPT/HCPCS: 36415; 70450; 70496; 70498; 70551; 75635; 78452; 80048; 80061; 80076; 81001; 83036; 83605; 83690; 83735; 84100; 84145; 85025; 85610; 85730; 87040; 87081; 87088; 93005; 93017; 93306; 93922; 93970; 96361; 96365; 96375; 97116; 97161; 97530; 99285; A4314; A9500; C1758; G0378; J0696; J1644; J2765; J2785; J7030; Q9967

== ENCOUNTER 2024-11-20 07:53 | Inpatient (IN) | payer OTHER, MEDICARE, MEDICAID ==
[~2024-11-20] VITALS: Ht 172.7 cm; Wt 69.0 kg
[~2024-11-20 07:53] MED LIST changes: +ASPI81TA53 PO; +ATOR80TA13 PO; +CLOP75TA34 PO; -ESCI5TAB17 PO; -LORA-268 PO; +tamsulosin capsule PO
[2024-11-20 08:40] LABS: COLOR,URINE RED (Yellow); UA COLLECTION TYPE STRAIGHT CATH
[2024-11-20 08:45] LABS: BACTERIA,URINE 3+ /HPF (Neg); MUCUS STRANDS NONE SEEN /LPF (Neg); RBC,URINE TNTC /HPF (0-2); SQUAMOUS EPITHELIAL CELL,UR NONE SEEN /LPF (FEW); WBC,URINE 0-4 /HPF (0-4)
[2024-11-20 08:58] LABS: BASOPHILS # (AUTO) 0.1 X10'3 (0-0.2); BASOPHILS % (AUTO) 1.3 % (0-1); EOSINOPHILS # (AUTO) 0.3 X10'3 (0-0.9); EOSINOPHILS % (AUTO) 2.8 % (0-6); HEMATOCRIT 40.1 % (42.0-52.0); HEMOGLOBIN 13.1 g/dl (14.0-17.9); LYMPHOCYTES # (AUTO) 1.8 X10'3 (1.1-4.8); LYMPHOCYTES % (AUTO) 18.5 % (21-51); MEAN CORPUSCULAR HEMOGLOBIN 28.7 PG (27.0-31.0); MEAN CORPUSCULAR HGB CONC 32.8 g/dL (33.0-36.5); MEAN CORPUSCULAR VOLUME 87.7 FL (78-98); MEAN PLATELET VOLUME 8.2 FL (7.4-10.4); MONOCYTES # (AUTO) 0.8 X10'3 (0-0.9); MONOCYTES % (AUTO) 8.6 % (2-12); NEUTROPHILS # (AUTO) 6.5 X10'3 (1.8-7.7); NEUTROPHILS % (AUTO) 68.8 % (42-75); PLATELET COUNT 324 X10'3 (140-440); RED BLOOD COUNT 4.57 X10'6 (4.70-6.10); RED CELL DISTRIBUTION WIDTH 14.4 % (11.5-14.5); WHITE BLOOD COUNT 9.5 X10'3 (4.5-11.0)
[2024-11-20 09:01] LABS: ALANINE AMINOTRANSFERASE 34 U/L (12-78); ALBUMIN 3.6 G/DL (3.4-5.0); ALBUMIN/GLOBULIN RATIO 0.9 (1.1-1.5); ALKALINE PHOSPHATASE 78 IU/L (46-116); ANION GAP 9 (8-16); ASPARTATE AMINO TRANSFERASE 18 U/L (10-37); BILIRUBIN,TOTAL 0.6 MG/DL (0.1-1.0); BLOOD UREA NITROGEN 23 MG/DL (7-18); CALCIUM 8.6 MG/DL (8.5-10.1); CHLORIDE 102 MMOL/L (99-107); CREATININE 1.15 MG/DL (0.60-1.10); GLUCOSE 137 MG/DL (70-104); POTASSIUM 3.9 MMOL/L (3.5-5.1); SODIUM 138 MMOL/L (135-145); TOTAL CARBON DIOXIDE 27.1 MMOL/L (24-32); TOTAL PROTEIN 7.4 G/DL (6.4-8.2); eCRCL 50 ML/MIN; eGFR 61 ML/MIN
[2024-11-20 09:32] LABS: PROTHROMBIN TIME 10.5 SECONDS (9.0-12.0)
--- NOTE | 2024-11-20 09:41 | Physician Documentation ---
History of Present Illness ~ Chief Complaint: Catheter Problem Stated Complaint: BLOOD IN CATH Time Seen by MD: 08:03 Primary Medical Doctor: R[place] Mode of Arrival: EMS HPI 79-year-old male presents to the emergency department with a complaint of hematuria, patient had a Mckeon catheter placed two days ago and may have pulled on the catheter now he has blood coming around the meatus with blood in the urethra as well. Medication Reconciliation Allergies: Coded Allergies: No Known Allergies (Unverified , 11/14/24) Scheduled Aspirin (Children's Aspirin), 81 MG PO DAILY@0830 Atenolol (Atenolol), 1 TAB PO DAILY, (Reported) Atorvastatin Calcium (Lipitor), 1 TAB PO DAILY Clopidogrel Bisulfate (Clopidogrel), 75 MG PO DAILY Losartan Potassium (Losartan Potassium), 1 TAB PO DAILY Nicotine 14 MG Patch* (Habitrol 14 MG Patch*), 1 PATCH TD DAILY Pantoprazole Sodium (Pantoprazole Sodium), 40 MG PO BID [tamsulosin capsule], 0.4 MG PO HS Discontinued Medications Escitalopram Oxalate (Escitalopram Oxalate), 1 TAB PO DAILY Discontinued Reason: patient no longer taking Lorazepam (Ativan), 1 TAB PO BID PRN for for anxiety/agitation Discontinued Reason: patient no longer taking Losartan Potassium (Losartan Potassium), 50 MG PO DAILY Past Medical History Past Medical History: Congestive Heart Failure, Hypertension, Hematuria, Anxiety Past Surgical History: no surgical history Patient History: Patient reports no known family medical history. Alcohol Use: None Drug Use: marijuana Lives with: Alone Lives In: Home Occupation: retired Review of Systems All Other Systems at this time: Reviewed and Negative Eyes: Reports: no symptoms reported ENT: Reports: no symptoms reported Genitourinary Mckeon catheter with taty blood from around the meatus, also blood in the Mckeon catheter Male Genitalia: Reports: see HPI Physical Exam Vital Signs: Temperature: 98.8, Source: Oral, Heart Rate: 87, Respiratory Rate: 15, BP: 133/86, Pulse Oximetry: 97, Weight: 69.000 Pulse Oximetry Reflects: adequate oxygenation General Appearance: alert EENT: PERRL/EOMI Neck: normal inspection Respiratory: lungs clear Chest: no accessory muscle use Gastrointestinal: tenderness Penile Discharge: bloody Glans: red; No: normal inspection, vesicles Progress Results/Orders Results/Orders Orders - ROTH,CORONA C DO General Nursing Order (11/20/24 11:04) Completed Orders - CORONA ROTH DO Cbc/Diff (11/20/24 08:09) CMP (11/20/24 08:09) Pt Inr (11/20/24 08:09) Ua With Microscopic (11/20/24 08:15) Morphine 4mg/Ml Inj. (Morphine Inj.) (11/20/24 11:30) Morphine 4mg/Ml Inj. (Morphine Inj.) (11/20/24 13:35) Medications Received in ER Medications (Trade) Dose Ordered Sig/Stephie Route PRN Reason Start Time Stop Time Status Last Admin Dose Admin (morphine inj.) 4 mg ONCE ONCE IV 11/20/24 11:30 11/20/24 11:34 DC 11/20/24 11:57 4 MG Vital Signs 11/20/24 11/20/24 11/20/24 11/20/24 07:58 08:03 09:03 11:49 Temp 98.8 Pulse 98 87 80 Resp 18 18 15 14 B/P (MAP) 152/91 133/86 (102) 97/70 (79) Pulse Ox 97 97 97 11/20/24 11/20/24 11/20/24 11:57 12:41 12:42 Temp 98.8 Pulse 92 Resp 14 18 18 B/P (MAP) 114/86 (95) Pulse Ox 97 Laboratory Tests Test 11/20/24 08:15 11/20/24 08:28 Urine Specimen Description Straight cath Urine Color Red Urine Clarity Urine pH Urine Specific [place] Urine Protein Urine Glucose (UA) Urine Ketones Urine Occult Blood Urine Nitrite Urine Bilirubin Urine Urobilinogen Urine Leukocyte Esterase Urine RBC Tntc Urine WBC 0-4 Urine Squamous Epithelial Cells None seen Urine Bacteria 3+ Urine Mucus None seen Volume Urine Centrifuged 10 ml Urine Comment See note White Blood Count 9.5 Red Blood Count 4.57 L Hemoglobin 13.1 L Hematocrit 40.1 L Mean Corpuscular Volume 87.7 Mean Corpuscular Hemoglobin 28.7 Mean Corpuscular Hemoglobin Concent 32.8 L Red Cell Distribution Width 14.4 Platelet Count 324 Mean Platelet Volume 8.2 Neutrophils (%) (Auto) 68.8 Lymphocytes (%) (Auto) 18.5 L Monocytes (%) (Auto) 8.6 Eosinophils (%) (Auto) 2.8 Basophils (%) (Auto) 1.3 H Neutrophils # (Auto) 6.5 Lymphocytes # (Auto) 1.8 Monocytes # (Auto) 0.8 Eosinophils # (Auto) 0.3 Basophils # (Auto) 0.1 CBC Comment Prothrombin Time 10.5 INR International Normalized Ratio 1.0 Coagulation Comments Sodium Level 138 Potassium Level 3.9 Chloride Level 102 Carbon Dioxide Level 27.1 Anion Gap 9 Blood Urea Nitrogen 23 H Creatinine 1.15 H Estimated GFR/1.73 m2 61 BUN/Creatinine Ratio 20.0 Glucose Level 137 H Calcium Level 8.6 Total Bilirubin 0.6 Aspartate Amino Transf (AST/SGOT) 18 Alanine Aminotransferase (ALT/SGPT) 34 Alkaline Phosphatase 78 Total Protein 7.4 Albumin 3.6 Globulin 3.8 Albumin/Globulin Ratio 0.9 L Chemistry Comments Re-Evaluation Re-Evaluation : Progress 9:30 a.m. discussed case with Dr. Hawthorne, urology, he will discuss with the nurse how to flush the catheter as he suspects that there is been some urethral trauma due to the taty blood around the penis and is concerned the catheter may be obstructed 2:25 p.m. discussed case with Dr. Hawthorne, he was able to remove the clots in the bladder but recommended admission to the hospital for CVI and monitoring CBC, hold blood thinners at this time Departure Disposition: 09 ADMITTED INPATIENT Impression: Primary Impression: Urinary retention Additional Impression: Hematuria Condition: Stable Referrals: NO PRIMARY CARE PROVIDER (PCP) Signature Scribe Signature: none Attestation: Dictated by myself CORONA ROTH DO Nov 20, 2024 09:41
[2024-11-20] MEDS: morphine 4 MG/ML inj SYRINge IV ONE ×2 (11:57→14:35)
[2024-11-20] MEDS ORDERED: magnesium sulf-water 2g/50mL 50 ML IV PRN (18:00)
[2024-11-20] MEDS ORDERED: ondansetron/PF 4mg/2ml inj IV PRN (18:00)
[2024-11-20] MEDS ORDERED: potassium Cl 20 mEq SR tablet PO PRN ×2 (18:00)
[2024-11-20] MEDS ORDERED: acetaminophen 325mg tablet PO PRN ×2 (18:00)
[2024-11-20] MEDS ORDERED: magnesium Cl slow-release 64mg tablet PO PRN (18:00)
[2024-11-20] MEDS ORDERED: potassium Cl 40MEQ/1/2NS 520ml 520 ML IV PRN (18:00)
[2024-11-20] MEDS ORDERED: mag hydrox/Alum hydrox/simeth 30ml oral suspension PO PRN (18:00)
[2024-11-20] MEDS ORDERED: magnesium sulf-water 4G/100mL 100 ML IV PRN (18:00)
[2024-11-20] MEDS ORDERED: HYDROcodone/acetaminophen 10/325mg tab PO PRN (18:35)
[2024-11-20] MEDS ORDERED: morphine 2 MG/ML inj. syringe IV PRN (18:35)
--- NOTE | 2024-11-20 18:47 | HISTORY AND PHYSICAL-Residence ---
History & Physical Providers to CC Resident Creating Document: EMILIA AGUDELO, RES ~ History of Present Illness Primary Medical Doctor: [place] Reason for Admit\Complaint: Hematuria History of Present Illness The patient is a 79-year-old male who presented to the ED with complaint of hematuria. The patient was discharged yesterday after he was managed for near- syncope secondary to ICA stenosis and PAD. The patient sustained a concussion to his head after which he developed bladder retention. He got a Mckeon's catheter during the last admission and was discharged on Mckeon's catheter. The patient says that after going home, he spontaneously started leaking blood which is why he came back to the hospital. He complains of significant lower abdominal pain. Allergies: Coded Allergies: No Known Allergies (Unverified , 11/14/24) Home Medications Home Medications Active Lipitor (Atorvastatin Calcium) 80 Mg Tablet 1 Tab PO DAILY 30 Days Children's Aspirin (Aspirin) 81 Mg Tab.chew 81 Mg PO DAILY@0830 30 Days Clopidogrel (Clopidogrel Bisulfate) 75 Mg Tablet 75 Mg PO DAILY 30 Days Do not stop medication unless instructed by prescriber. 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 Family History Family History: Patient reports no known family medical history. Past Social History Social History Comment The patient lives at his house by himself. But he has few friends in a hotel nearby who can help him. He goes to [facility] for primary care. He does not follow up with any other specialists. Smokes half pack of cigarettes per day. Has been smoking since he was 18 years old. Quit alcohol four years ago. Denied any other recreational drug abuse. Smoking: Cigarettes, Greater than 1 pack/day Alcohol Use: None Drug Use: Marijuana Lives with: Alone Lives In: Home Occupation: retired ROS All Other Systems: Reviewed and Negative ROS Reviewed in full. Negative except for pertinent positives in HPI. Eyes: Reports: no symptoms reported ENT: Reports: no symptoms reported Male Genitalia: Reports: see HPI Exam Vitals: Vital Signs Date Time Temp Pulse Resp B/P (MAP) Pulse Ox O2 Delivery O2 Flow Rate FiO2 11/20/24 17:11 67 14 101/64 (76) 96 11/20/24 12:42 98.8 General: Elderly male, alert and oriented x4, not in acute distress Head: Normocephalic, atraumatic Eyes: Pupils- 3mm, reacting to light, conjunctiva- anicteric Nose and throat: No polyps, septum- normal, no mucosal ulcers Neck: Supple, no lymphadenopathy, no carotid bruit Respiratory: No use of accessory muscles of respiration, Bilateral normal vesiscular breath sounds heard. No wheeze, rhochi or creps Cardiac: S1-S2 heard, rhythm regular, no gallop/murmur Abdomen: non distended, mild lower abdominal tenderness, no organomegaly, bowel sounds - heard Genitourinary: Irrigation catheter in place with surrounding blood stains Extremities: no clubbing, no pedal edema, no deformities, peripheral pulses - feeble Skin: warm and dry, no rash, no purpura Neuro: No focal deficit, gross cranial nerve exam - normal Diagnostic Data Last Recorded Lab Results: 11/20/24 0828 11/20/24 0828 Diagnostic Data: Laboratory Tests Test 11/20/24 08:28 Prothrombin Time 10.5 SECONDS (9.0-12.0) INR International Normalized Ratio 1.0 INR Coagulation Comments Additional Plan Hematuria Likely secondary to Mckeon's trauma History of bladder retention possibly secondary to concussion Dr. Hawthorne is on board. He was able to remove clots in the bladder. He recommended hospital admission for continuous bladder irrigation. Continue continuous bladder irrigation overnight. 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 He was evaluated by Dr. Padilla and was deferred surgery as he is high-risk. He was to follow up with Dr. Nunn outpatient for stenting. Held his Plavix and aspirin. Continue Lipitor 80 mg daily. Hypertension Held his home meds as his blood pressures are currently soft. We will resume medications tomorrow. History of gastritis, duodenitis and duodenal ulcers Continue pantoprazole 40 mg daily. Nicotine use disorder Nicotine patch 21 mg daily transdermal. Anxiety Depression No home medications. Continue to monitor. Code Status: Full code DVT Prophylaxis: SCDs Analgesia/Sedation: [place], morphine Lines/Tubes: PIV, Mckeon's catheter GI Prophylaxis: Protonix Nutrition: Heart healthy diet PT: Ordered Disposition: Continue continuous bladder irrigation overnight. Emilia Agudelo MD Internal Medicine Resident, PGY-1 Date of Service: Nov 20, 2024 Billing Provider: IRMA WEI MD Common Visit Codes: [id number] INP/OBS CARE (HIGH) EMILIA AGUDELO, RES Nov 20, 2024 18:47 IRMA WEI MD Nov 21, 2024 15:59
[2024-11-20 19:04] LABS: HEMATOCRIT 32.5 % (42.0-52.0); HEMOGLOBIN 10.8 g/dl (14.0-17.9); MEAN CORPUSCULAR HGB CONC 33.4 g/dL (33.0-36.5); MEAN CORPUSCULAR VOLUME 87.1 FL (78-98); PLATELET COUNT 294 X10'3 (140-440); RED BLOOD COUNT 3.73 X10'6 (4.70-6.10); RED CELL DISTRIBUTION WIDTH 14.7 % (11.5-14.5)
[2024-11-20] MEDS: normal saline 1000ml 1,000 ML IV SCH (19:56)
[2024-11-20] MEDS: nicotine 21mg patch - 24 hr TD SCH (19:57)
[2024-11-20] MEDS: K and/or MAG REPLACEMENT MC SCH (19:58)
[2024-11-20] MEDS: pantoprazole 40mg Tablet.DR PO SCH (20:00)
[2024-11-21 00:01] VITALS: BP 147/62; PULSE 68; RESP 20; TEMP 98.5; O2SAT 97
[2024-11-21 01:50] LABS: BASOPHILS # (AUTO) 0.1 X10'3 (0-0.2); BASOPHILS % (AUTO) 0.9 % (0-1); EOSINOPHILS # (AUTO) 0.1 X10'3 (0-0.9); EOSINOPHILS % (AUTO) 0.7 % (0-6); HEMATOCRIT 28.2 % (42.0-52.0); HEMOGLOBIN 9.7 g/dl (14.0-17.9); LYMPHOCYTES # (AUTO) 2.2 X10'3 (1.1-4.8); LYMPHOCYTES % (AUTO) 18.2 % (21-51); MEAN CORPUSCULAR HEMOGLOBIN 29.6 PG (27.0-31.0); MEAN CORPUSCULAR HGB CONC 34.2 g/dL (33.0-36.5); MEAN CORPUSCULAR VOLUME 86.6 FL (78-98); MEAN PLATELET VOLUME 7.9 FL (7.4-10.4); MONOCYTES # (AUTO) 1.1 X10'3 (0-0.9); MONOCYTES % (AUTO) 9.4 % (2-12); NEUTROPHILS # (AUTO) 8.4 X10'3 (1.8-7.7); NEUTROPHILS % (AUTO) 70.8 % (42-75); PLATELET COUNT 261 X10'3 (140-440); RED BLOOD COUNT 3.26 X10'6 (4.70-6.10); RED CELL DISTRIBUTION WIDTH 14.4 % (11.5-14.5); WHITE BLOOD COUNT 11.9 X10'3 (4.5-11.0)
[2024-11-21 02:05] LABS: ALANINE AMINOTRANSFERASE 29 U/L (12-78); ALKALINE PHOSPHATASE 65 IU/L (46-116); ASPARTATE AMINO TRANSFERASE 13 U/L (10-37); BILIRUBIN,TOTAL 0.8 MG/DL (0.1-1.0); BLOOD UREA NITROGEN 25 MG/DL (7-18); BUN/CREATININE RATIO 24.8 (10.0-20.0); CALCIUM 7.9 MG/DL (8.5-10.1); CREATININE 1.01 MG/DL (0.60-1.10); GLUCOSE 113 MG/DL (70-104); MAGNESIUM 1.5 MG/DL (1.5-2.4); POTASSIUM 4.1 MMOL/L (3.5-5.1); SODIUM 138 MMOL/L (135-145); TOTAL CARBON DIOXIDE 27.2 MMOL/L (24-32); eCRCL 57 ML/MIN; eGFR 71 ML/MIN
[2024-11-21 02:06] LABS: ANION GAP 6 (8-16); CHLORIDE 105 MMOL/L (99-107)
[2024-11-21] MEDS: morphine 2 MG/ML inj. syringe IV PRN (02:12)
--- NOTE | 2024-11-21 03:20 | CONSULTATION ---
DATE OF CONSULTATION: 11/20/2024 DICTATING PHYSICIAN: Carter Hawthorne MD HISTORY OF PRESENT ILLNESS: A 79-year-old male who presented himself to the Emergency Room after being seen in the Emergency Room 2 days ago with difficulty urinating. A Mckeon catheter was placed. The patient denies gross hematuria at that time. He represented with poorly draining catheter with clot retention and gross hematuria. PAST SURGICAL HISTORY: None. PAST MEDICAL HISTORY: CHF, hypertension, hematuria, and anxiety. ALLERGIES: None. MEDICATIONS: Aspirin, atenolol, atorvastatin, Plavix, losartan, nicotine patch, pantoprazole and tamsulosin. SOCIAL HISTORY: Noncontributory. REVIEW OF SYSTEMS: A 10-point review of systems negative except for HPI. PHYSICAL EXAMINATION: VITAL SIGNS: Blood pressure is 133/86, respirations 15, heart rate 87, temperature 98.8. GENERAL: The patient is in severe distress, complaining of bladder fullness. He has a palpable bladder. LABORATORY DATA: Hematocrit is 40%. BUN and creatinine are 23 and 1.1. PROCEDURE: Attempt was made to hand irrigate his indwelling 20-[place] 3-way Mckeon, but I did not get any clots out. I elected to exchange his Mckeon at this point for a 22-[place] Citizen hematuria catheter and approximately 400 mL of clotted blood was removed. It was irrigated basically to clear and started on CBI with 30 mL in the balloon. This dramatically improved the patient's comfort level. ASSESSMENT: Clot retention with indwelling Mckeon, now with clot successfully evacuated. There was some mild ongoing bleeding. PLAN: Admit. Continuous bladder irrigation. Wean irrigation off as tolerated. Consider holding anticoagulation including aspirin and/or Plavix. Carter Hawthorne MD TID: [id number] RECEIPT: [id number] TOM/SARAH/REGINA
[2024-11-21 06:57] VITALS: BP 104/56; PULSE 60; RESP 17; TEMP 98.4; O2SAT 96
[2024-11-21 07:02] LABS: HEMATOCRIT 25.9 % (42.0-52.0); HEMOGLOBIN 8.9 g/dl (14.0-17.9); MEAN CORPUSCULAR HEMOGLOBIN 29.8 PG (27.0-31.0); MEAN CORPUSCULAR HGB CONC 34.3 g/dL (33.0-36.5); MEAN CORPUSCULAR VOLUME 86.7 FL (78-98); MEAN PLATELET VOLUME 7.7 FL (7.4-10.4); PLATELET COUNT 243 X10'3 (140-440); RED BLOOD COUNT 2.99 X10'6 (4.70-6.10); RED CELL DISTRIBUTION WIDTH 14.2 % (11.5-14.5); WHITE BLOOD COUNT 9.9 X10'3 (4.5-11.0)
[2024-11-21] MEDS: atorvastatin 20mg tablet PO SCH (09:01)
[2024-11-21 10:00] VITALS: BP 130/64; PULSE 72; RESP 18; TEMP 98; O2SAT 97
[2024-11-21] MEDS: HYDROcodone/acetaminophen 5mg/325mg tablet PO PRN (10:35)
[2024-11-21 13:11] LABS: HEMATOCRIT 30.5 % (42.0-52.0); HEMOGLOBIN 10.2 g/dl (14.0-17.9); MEAN CORPUSCULAR HEMOGLOBIN 29.2 PG (27.0-31.0); MEAN CORPUSCULAR HGB CONC 33.3 g/dL (33.0-36.5); MEAN CORPUSCULAR VOLUME 87.7 FL (78-98); PLATELET COUNT 299 X10'3 (140-440); RED BLOOD COUNT 3.48 X10'6 (4.70-6.10); RED CELL DISTRIBUTION WIDTH 14.3 % (11.5-14.5); WHITE BLOOD COUNT 12.2 X10'3 (4.5-11.0)
--- NOTE | 2024-11-21 17:55 | PROGRESS NOTE- Residence ---
Progress Note - Resident Providers to CC Resident Creating Document: EMILIA AGUDELO, RES ~ Antibiotic Timeout Antibiotic Ordered?: No Subjective The patient was seen and examined at bedside today. He is currently asymptomatic. Abdominal pain is being managed with opioids. Hematuria started clearing up. Objective Vital Signs Date Time Temp Pulse Resp B/P (MAP) Pulse Ox O2 Delivery O2 Flow Rate FiO2 11/21/24 10:35 18 11/21/24 09:00 Room Air 11/21/24 06:57 98.4 60 104/56 (72) 96 Result Diagram: 11/21/24 1248 11/21/24 0130 Elderly male, alert and oriented x4, not in acute distress Head: Normocephalic, atraumatic Eyes: Pupils- 3mm, reacting to light, conjunctiva- anicteric Nose and throat: No polyps, septum- normal, no mucosal ulcers Neck: Supple, no lymphadenopathy, no carotid bruit Respiratory: No use of accessory muscles of respiration, Bilateral normal veiscular breath sounds heard. No wheeze, rhochi or creps Cardiac: S1-S2 heard, rhythm regular, no gallop/murmur Abdomen: non distended, mild lower abdominal tenderness, no organomegaly, bowel sounds - heard Genitourinary: Irrigation catheter in place Extremities: no clubbing, no pedal edema, no deformities, peripheral pulses - feeble Skin: warm and dry, no rash, no purpura Neuro: No focal deficit, gross cranial nerve exam - normal Coagulation Studies Laboratory Tests Test 11/20/24 08:28 Prothrombin Time 10.5 SECONDS (9.0-12.0) INR International Normalized Ratio 1.0 INR Coagulation Comments Plan Plan Hematuria Likely secondary to Mckeon's trauma History of bladder retention possibly secondary to concussion Dr. Hawthorne is on board. He was able to remove clots in the bladder yesterday. Continue continuous bladder irrigation overnight. 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 He was evaluated by Dr. Padilla and was deferred surgery as he is high-risk. He was to follow up with Dr. Nunn outpatient for stenting. Resuming aspirin 81 mg from tomorrow. Hold Plavix. Continue Lipitor 80 mg daily. Hypertension Held his home meds as his blood pressures are currently soft. We will resume medications tomorrow. History of gastritis, duodenitis and duodenal ulcers Continue pantoprazole 40 mg daily. Nicotine use disorder Nicotine patch 21 mg daily transdermal. Anxiety Depression No home medications. Continue to monitor. Code Status: Full code DVT Prophylaxis: SCDs Analgesia/Sedation: [place], morphine Lines/Tubes: PIV, Mckeon's catheter GI Prophylaxis: Protonix Nutrition: Heart healthy diet PT: Ordered Disposition: Continue continuous bladder irrigation overnight. Emilia Agudelo MD Internal Medicine Resident, PGY-1 Date of Service: Nov 21, 2024 Billing Provider: IRMA WEI MD Common Visit Codes: [id number] INP/OBS CARE(HIGH) EMILIA AGUDELO, RES Nov 21, 2024 17:55 IRMA EWI MD Nov 28, 2024 17:59
[2024-11-21 18:00] VITALS: BP 126/65; PULSE 62; RESP 14; TEMP 98.6; O2SAT 97
[2024-11-21 18:24] LABS: HEMATOCRIT 24.7 % (42.0-52.0); HEMOGLOBIN 8.6 g/dl (14.0-17.9); MEAN CORPUSCULAR HEMOGLOBIN 29.9 PG (27.0-31.0); MEAN CORPUSCULAR HGB CONC 34.7 g/dL (33.0-36.5); MEAN CORPUSCULAR VOLUME 86.1 FL (78-98); MEAN PLATELET VOLUME 7.6 FL (7.4-10.4); PLATELET COUNT 254 X10'3 (140-440); RED BLOOD COUNT 2.87 X10'6 (4.70-6.10); RED CELL DISTRIBUTION WIDTH 14.2 % (11.5-14.5); WHITE BLOOD COUNT 10.5 X10'3 (4.5-11.0)
[2024-11-21 20:00] VITALS: RESP 14; O2SAT 97
[2024-11-21 22:00] VITALS: BP 124/70; PULSE 50; RESP 16; TEMP 98.5; O2SAT 98
[2024-11-22 05:32] LABS: BASOPHILS # (AUTO) 0.1 X10'3 (0-0.2); BASOPHILS % (AUTO) 1.1 % (0-1); EOSINOPHILS # (AUTO) 0.3 X10'3 (0-0.9); HEMATOCRIT 24.4 % (42.0-52.0); HEMOGLOBIN 8.1 g/dl (14.0-17.9); LYMPHOCYTES % (AUTO) 25.1 % (21-51); MEAN CORPUSCULAR HEMOGLOBIN 29.1 PG (27.0-31.0); MEAN CORPUSCULAR HGB CONC 33.3 g/dL (33.0-36.5); MEAN CORPUSCULAR VOLUME 87.4 FL (78-98); MEAN PLATELET VOLUME 8.1 FL (7.4-10.4); MONOCYTES # (AUTO) 0.9 X10'3 (0-0.9); MONOCYTES % (AUTO) 10.8 % (2-12); NEUTROPHILS # (AUTO) 4.7 X10'3 (1.8-7.7); PLATELET COUNT 242 X10'3 (140-440); RED BLOOD COUNT 2.79 X10'6 (4.70-6.10); RED CELL DISTRIBUTION WIDTH 14.1 % (11.5-14.5)
[2024-11-22 06:00] VITALS: BP 118/58; PULSE 54; RESP 12; TEMP 97.7; O2SAT 97
[2024-11-22 06:03] LABS: ALANINE AMINOTRANSFERASE 27 U/L (12-78); ALBUMIN 2.5 G/DL (3.4-5.0); ALBUMIN/GLOBULIN RATIO 0.9 (1.1-1.5); ALKALINE PHOSPHATASE 56 IU/L (46-116); ANION GAP 6 (8-16); ASPARTATE AMINO TRANSFERASE 8 U/L (10-37); BILIRUBIN,TOTAL 0.5 MG/DL (0.1-1.0); BLOOD UREA NITROGEN 15 MG/DL (7-18); BUN/CREATININE RATIO 16.3 (10.0-20.0); CALCIUM 7.7 MG/DL (8.5-10.1); CHLORIDE 107 MMOL/L (99-107); CREATININE 0.92 MG/DL (0.60-1.10); GLUCOSE 94 MG/DL (70-104); MAGNESIUM 1.5 MG/DL (1.5-2.4); POTASSIUM 3.7 MMOL/L (3.5-5.1); SODIUM 141 MMOL/L (135-145); TOTAL CARBON DIOXIDE 27.9 MMOL/L (24-32); TOTAL PROTEIN 5.2 G/DL (6.4-8.2); eCRCL 63 ML/MIN; eGFR 79 ML/MIN
[2024-11-22] MEDS: aspirin 81mg, enteric-coated 1 TAB TABLET.DR PO SCH (08:13)
[2024-11-22] MEDS: magnesium hydroxide 30ml (MOM) UD suspension PO PRN (08:13)
[2024-11-22 10:00] VITALS: BP 136/53; PULSE 60; RESP 15; TEMP 97.3; O2SAT 96
[2024-11-22] MEDS: tamsulosin 0.4mg capsule PO SCH (10:47)
--- NOTE | 2024-11-22 15:13 | PROGRESS NOTE ---
DATE: 11/22/2024 DICTATING PHYSICIAN: Carter Hawthorne MD SUBJECTIVE: Hospital day #3. Over the last 2 days, the catheter has been working well with minimal clots on slow to moderate CBI. He has had considerable fall in his hematocrit with a hematocrit of 40% at presentation, currently leveling out at about 25%. Urine is mostly clear without clots on a slow CBI. PLAN: Wean CBI to off as tolerated. Okay to restart aspirin, but would prefer staying off Plavix unless absolutely indicated from a medical standpoint. Discharge to home once his urine is clear off CBI. Carter Hawthorne MD TID: [id number] RECEIPT: [id number] TOM/SARAH/THUAN
[2024-11-22] MEDS: tranexamic acid 1gm/0.7% sal. 100 ML IV ONE (17:36)
--- NOTE | 2024-11-22 17:36 | PROGRESS NOTE- Residence ---
Progress Note - Resident Providers to CC Resident Creating Document: LILIA EL RES ~ Antibiotic Timeout Antibiotic Ordered?: No Subjective Patient seen and examined. Denies any pain but continues to have hematuria with CBI. States that he needs a referral [facility] Mentions that he has difficulty in transportation from his house to the clinics Objective Vital Signs Date Time Temp Pulse Resp B/P (MAP) Pulse Ox O2 Delivery O2 Flow Rate FiO2 11/22/24 10:30 Room Air 11/22/24 10:00 97.3 60 15 136/53 (80) 96 Result Diagram: 11/22/24 0454 11/22/24 0454 Elderly male, alert and oriented x4, not in acute distress Head: Normocephalic, atraumatic Eyes: Pupils- 3mm, reacting to light, conjunctiva- anicteric Nose and throat: No polyps, septum- normal, no mucosal ulcers Neck: Supple, no lymphadenopathy, no carotid bruit Respiratory: No use of accessory muscles of respiration, Bilateral normal veiscular breath sounds heard. No wheeze, rhochi or creps Cardiac: S1-S2 heard, rhythm regular, no gallop/murmur Abdomen: non distended, mild lower abdominal tenderness, no organomegaly, bowel sounds - heard Genitourinary: Irrigation catheter in place Extremities: no clubbing, no pedal edema, no deformities, peripheral pulses - feeble Skin: warm and dry, no rash, no purpura Neuro: No focal deficit, gross cranial nerve exam - normal Coagulation Studies Laboratory Tests Test 11/20/24 08:28 Prothrombin Time 10.5 SECONDS (9.0-12.0) INR International Normalized Ratio 1.0 INR Coagulation Comments Plan Plan Hematuria Likely secondary to Mckeon's trauma History of bladder retention possibly secondary to concussion Dr. Hawthorne is on board. On 11/20/2024, catheter changed from 20 [place] to 22 [place] in about 400 mL of clotted blood removed by Dr. Hawthorne Continues to have hematuria despite holding Plavix. Received aspirin this morning Continue CBI. Hold Plavix and aspirin. Given 1 g tranexamic acid once Significant drop in hemoglobin from 13.1 on 11/21/2019 5-8.1 today Continue NS at 100 cc/hour and might require packed RBC transfusion if HGB drops to less than 7 Vitals stable Started tamsulosin 0.4 mg p.o. 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 He was evaluated by Dr. Padilla and was deferred surgery as he is high-risk. He was to follow up with Dr. Nunn outpatient for stenting. Hold aspirin and Plavix due to significant hematuria Continue Lipitor 80 mg daily. Hypertension Held his home meds as his blood pressures are currently soft. We will resume medications tomorrow. History of gastritis, duodenitis and duodenal ulcers Continue pantoprazole 40 mg daily. Nicotine use disorder Nicotine patch 21 mg daily transdermal. Anxiety Depression No home medications. Continue to monitor. Code Status: Full code DVT Prophylaxis: SCDs Analgesia/Sedation: [place], morphine Lines/Tubes: PIV, Mckeon's catheter GI Prophylaxis: Protonix Nutrition: Heart healthy diet PT: Ordered Disposition: Continue continuous bladder irrigation overnight. Monitor H and H. Continue IV fluids Lilia El MD Internal Medicine Resident, PGY 2 Date of Service: Nov 22, 2024 Billing Provider: IRMA WEI MD Common Visit Codes: [id number] INP/OBS CARE(HIGH) LILIA EL RES Nov 22, 2024 17:36 IRMA WEI MD Nov 28, 2024 17:59
[2024-11-22 18:00] VITALS: BP 132/71; PULSE 52; RESP 19; TEMP 97.8; O2SAT 97
[2024-11-22 20:00] VITALS: RESP 19; O2SAT 97
[2024-11-22 22:00] VITALS: BP 144/78; PULSE 70; RESP 16; TEMP 98; O2SAT 97
[2024-11-23 05:44] LABS: BASOPHILS # (AUTO) 0.1 X10'3 (0-0.2); BASOPHILS % (AUTO) 1.2 % (0-1); EOSINOPHILS # (AUTO) 0.3 X10'3 (0-0.9); EOSINOPHILS % (AUTO) 3.6 % (0-6); HEMOGLOBIN 7.4 g/dl (14.0-17.9); LYMPHOCYTES # (AUTO) 1.8 X10'3 (1.1-4.8); LYMPHOCYTES % (AUTO) 24.4 % (21-51); MEAN CORPUSCULAR HEMOGLOBIN 29.6 PG (27.0-31.0); MEAN CORPUSCULAR HGB CONC 34.3 g/dL (33.0-36.5); MEAN CORPUSCULAR VOLUME 86.3 FL (78-98); MEAN PLATELET VOLUME 8.1 FL (7.4-10.4); MONOCYTES # (AUTO) 0.8 X10'3 (0-0.9); MONOCYTES % (AUTO) 10.2 % (2-12); NEUTROPHILS # (AUTO) 4.4 X10'3 (1.8-7.7); NEUTROPHILS % (AUTO) 60.6 % (42-75); PLATELET COUNT 237 X10'3 (140-440); RED BLOOD COUNT 2.49 X10'6 (4.70-6.10); RED CELL DISTRIBUTION WIDTH 14.2 % (11.5-14.5); WHITE BLOOD COUNT 7.3 X10'3 (4.5-11.0)
[2024-11-23 05:51] LABS: ALANINE AMINOTRANSFERASE 21 U/L (12-78); ALBUMIN 2.5 G/DL (3.4-5.0); ALBUMIN/GLOBULIN RATIO 0.9 (1.1-1.5); ALKALINE PHOSPHATASE 60 IU/L (46-116); ANION GAP 2 (8-16); ASPARTATE AMINO TRANSFERASE 4 U/L (10-37); BILIRUBIN,TOTAL 0.5 MG/DL (0.1-1.0); BLOOD UREA NITROGEN 9 MG/DL (7-18); BUN/CREATININE RATIO 9.9 (10.0-20.0); CALCIUM 7.8 MG/DL (8.5-10.1); CHLORIDE 108 MMOL/L (99-107); CREATININE 0.91 MG/DL (0.60-1.10); GLUCOSE 105 MG/DL (70-104); MAGNESIUM 1.6 MG/DL (1.5-2.4); POTASSIUM 3.7 MMOL/L (3.5-5.1); SODIUM 140 MMOL/L (135-145); TOTAL CARBON DIOXIDE 30.3 MMOL/L (24-32); TOTAL PROTEIN 5.2 G/DL (6.4-8.2); eCRCL 64 ML/MIN; eGFR 80 ML/MIN
[2024-11-23 06:00] VITALS: BP 135/67; PULSE 56; RESP 14; TEMP 97.9; O2SAT 98
[2024-11-23 06:15] LABS: HEMATOCRIT 21.5 % (42.0-52.0)
[2024-11-23 08:15] LABS: HEMATOCRIT 26.1 % (42.0-52.0); HEMOGLOBIN 8.9 g/dl (14.0-17.9); MEAN CORPUSCULAR HEMOGLOBIN 29.5 PG (27.0-31.0); MEAN CORPUSCULAR HGB CONC 34.1 g/dL (33.0-36.5); MEAN CORPUSCULAR VOLUME 86.4 FL (78-98); MEAN PLATELET VOLUME 7.8 FL (7.4-10.4); PLATELET COUNT 290 X10'3 (140-440); RED BLOOD COUNT 3.02 X10'6 (4.70-6.10); RED CELL DISTRIBUTION WIDTH 14.2 % (11.5-14.5); WHITE BLOOD COUNT 7.9 X10'3 (4.5-11.0)
[2024-11-23 10:00] VITALS: BP 146/87; PULSE 67; RESP 16; RESP 18; TEMP 98.5; O2SAT 96
[2024-11-23 10:07] VITALS: RESP 16; O2SAT 96
[2024-11-23] MEDS: losartan 50mg tablet PO ONE (12:26)
[2024-11-23 15:47] LABS: HEMATOCRIT 23.8 % (42.0-52.0); HEMOGLOBIN 8.1 g/dl (14.0-17.9); MEAN CORPUSCULAR HEMOGLOBIN 29.4 PG (27.0-31.0); MEAN CORPUSCULAR HGB CONC 33.8 g/dL (33.0-36.5); MEAN CORPUSCULAR VOLUME 87.1 FL (78-98); MEAN PLATELET VOLUME 7.8 FL (7.4-10.4); PLATELET COUNT 283 X10'3 (140-440); RED BLOOD COUNT 2.74 X10'6 (4.70-6.10); RED CELL DISTRIBUTION WIDTH 14.1 % (11.5-14.5); WHITE BLOOD COUNT 7.7 X10'3 (4.5-11.0)
[2024-11-23] MEDS: tranexamic acid 1gm/0.7% sal. 100 ML IV ONE (16:30)
[2024-11-23 18:00] VITALS: BP 107/65; PULSE 80; RESP 14; TEMP 98.3; O2SAT 97
--- NOTE | 2024-11-23 18:11 | PROGRESS NOTE- Residence ---
Progress Note - Resident Providers to CC Resident Creating Document: EMILIA AGUDELO, RES ~ Antibiotic Timeout Antibiotic Ordered?: No Subjective The patient was seen and examined at bedside today. He continues to have some hematuria. Clot evacuation done today. Objective Vital Signs Date Time Temp Pulse Resp B/P (MAP) Pulse Ox O2 Delivery O2 Flow Rate FiO2 11/23/24 12:26 65 11/23/24 10:07 16 96 Room Air 11/23/24 10:00 98.5 146/87 (106) Result Diagram: 11/23/24 1531 11/23/24 0456 Elderly male, alert and oriented x4, not in acute distress Head: Normocephalic, atraumatic Eyes: Pupils- 3mm, reacting to light, conjunctiva- anicteric Nose and throat: No polyps, septum- normal, no mucosal ulcers Neck: Supple, no lymphadenopathy, no carotid bruit Respiratory: No use of accessory muscles of respiration, Bilateral normal veiscular breath sounds heard. No wheeze, rhochi or creps Cardiac: S1-S2 heard, rhythm regular, no gallop/murmur Abdomen: non distended, mild lower abdominal tenderness, no organomegaly, bowel sounds - heard Genitourinary: Irrigation catheter in place Extremities: no clubbing, no pedal edema, no deformities, peripheral pulses - feeble Skin: warm and dry, no rash, no purpura Neuro: No focal deficit, gross cranial nerve exam - normal Coagulation Studies Laboratory Tests Test 11/20/24 08:28 Prothrombin Time 10.5 SECONDS (9.0-12.0) INR International Normalized Ratio 1.0 INR Coagulation Comments Plan Plan Hematuria Likely secondary to Mckeon's trauma History of bladder retention possibly secondary to concussion Repeat clot evacuation done today. Second dose of 1 g tranexamic acid given. Dr. Hawthorne is on board. On 11/20/2024, catheter changed from 20 [place] to 22 [place] in about 400 mL of clotted blood removed by Dr. Hawthorne. Held aspirin and Plavix. We will start aspirin 81 mg q.48h at discharge. Ultrasound abdomen or CT abdomen tomorrow. Continue CBI. Significant drop in hemoglobin from 13.1 on 11/21/2019 5-8.1 today. Continue NS at 100 cc/hour and might require packed RBC transfusion if HGB drops to less than 7. Vitals stable. Started tamsulosin 0.4 mg p.o. HS. 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 He was evaluated by Dr. Padilla and was deferred surgery as he is high-risk. He was to follow up with Dr. Nunn outpatient for stenting. Hold aspirin and Plavix due to significant hematuria Continue Lipitor 80 mg daily. Hypertension Continue home losartan 50 mg and atenolol 50 mg daily. History of gastritis, duodenitis and duodenal ulcers Continue pantoprazole 40 mg daily. Nicotine use disorder Nicotine patch 21 mg daily transdermal. Anxiety Depression No home medications. Continue to monitor. Code Status: Full code DVT Prophylaxis: SCDs Analgesia/Sedation: [place], morphine Lines/Tubes: PIV, Mckeon's catheter GI Prophylaxis: Protonix Nutrition: Heart healthy diet PT: Ordered Disposition: Continue continuous bladder irrigation overnight. Monitor H and H. Continue IV fluids. Emilia Agudelo MD Internal Medicine Resident, PGY-1 Date of Service: Nov 23, 2024 Billing Provider: IRMA WEI MD Common Visit Codes: [id number] INP/OBS CARE(HIGH) EMILIA AGUDELO, RES Nov 23, 2024 18:11 IRMA WEI MD Nov 28, 2024 17:59
[2024-11-23] MEDS ORDERED: fluticasone nasal spray 16GM bottle NS PRN (18:45)
[2024-11-23 20:00] VITALS: RESP 14; O2SAT 97
[2024-11-23] MEDS: bisacodyl 10mg suppository rectal RC PRN (20:08)
[2024-11-23 22:00] VITALS: BP 123/52; PULSE 58; RESP 14; TEMP 98.1; O2SAT 98
[2024-11-24 05:00] VITALS: BP 150/79; PULSE 68; RESP 16; TEMP 97.9; O2SAT 97
[2024-11-24 06:13] LABS: BASOPHILS # (AUTO) 0.1 X10'3 (0-0.2); BASOPHILS % (AUTO) 1.2 % (0-1); EOSINOPHILS # (AUTO) 0.3 X10'3 (0-0.9); EOSINOPHILS % (AUTO) 3.7 % (0-6); HEMATOCRIT 23.3 % (42.0-52.0); HEMOGLOBIN 7.9 g/dl (14.0-17.9); LYMPHOCYTES # (AUTO) 1.7 X10'3 (1.1-4.8); MEAN CORPUSCULAR HEMOGLOBIN 29.4 PG (27.0-31.0); MEAN CORPUSCULAR HGB CONC 33.7 g/dL (33.0-36.5); MEAN PLATELET VOLUME 8.3 FL (7.4-10.4); MONOCYTES # (AUTO) 0.8 X10'3 (0-0.9); MONOCYTES % (AUTO) 10.4 % (2-12); NEUTROPHILS # (AUTO) 4.8 X10'3 (1.8-7.7); NEUTROPHILS % (AUTO) 62.7 % (42-75); PLATELET COUNT 280 X10'3 (140-440); RED BLOOD COUNT 2.68 X10'6 (4.70-6.10); RED CELL DISTRIBUTION WIDTH 14.1 % (11.5-14.5); WHITE BLOOD COUNT 7.7 X10'3 (4.5-11.0)
[2024-11-24 06:45] LABS: ALANINE AMINOTRANSFERASE 19 U/L (12-78); ALBUMIN 2.6 G/DL (3.4-5.0); ALBUMIN/GLOBULIN RATIO 0.9 (1.1-1.5); ALKALINE PHOSPHATASE 64 IU/L (46-116); ANION GAP 3 (8-16); ASPARTATE AMINO TRANSFERASE 7 U/L (10-37); BILIRUBIN,TOTAL 0.4 MG/DL (0.1-1.0); BLOOD UREA NITROGEN 6 MG/DL (7-18); BUN/CREATININE RATIO 7.5 (10.0-20.0); CALCIUM 7.8 MG/DL (8.5-10.1); CHLORIDE 107 MMOL/L (99-107); GLUCOSE 108 MG/DL (70-104); MAGNESIUM 1.8 MG/DL (1.5-2.4); POTASSIUM 3.2 MMOL/L (3.5-5.1); SODIUM 140 MMOL/L (135-145); TOTAL PROTEIN 5.4 G/DL (6.4-8.2); eCRCL 72 ML/MIN; eGFR > 90 ML/MIN
[2024-11-24] MEDS ORDERED: atenolol 50mg tablet PO SCH (08:00)
[2024-11-24 10:00] VITALS: BP 158/86; PULSE 98; RESP 14; TEMP 98.6; O2SAT 98
[2024-11-24] MEDS: atenolol 50mg tablet PO SCH (10:51)
[2024-11-24] MEDS: losartan 50mg tablet PO SCH (10:51)
[2024-11-24] MEDS ORDERED: iohexol 300mg/ml 100ml inj. ONE (11:30)
[2024-11-24] MEDS ORDERED: magnesium sulf-water 4G/100mL 100 ML IV PRN (12:20)
[2024-11-24] MEDS ORDERED: magnesium Cl slow-release 64mg tablet PO PRN (12:20)
[2024-11-24] MEDS ORDERED: magnesium sulf-water 2g/50mL 50 ML IV PRN (12:20)
[2024-11-24] MEDS ORDERED: potassium Cl 20 mEq SR tablet PO PRN (12:20)
[2024-11-24] MEDS ORDERED: potassium Cl 40MEQ/1/2NS 520ml 520 ML IV PRN (12:20)
--- NOTE | 2024-11-24 12:25 | PROGRESS NOTE- Residence ---
Progress Note - Resident Providers to CC Resident Creating Document: EMILIA AGUDELO PAIGEMYLES, RES ~ Antibiotic Timeout Antibiotic Ordered?: No Subjective The patient was seen and examined at bedside today. His hematuria started clearing up. He felt relieved after he passed stools after receiving Dulcolax suppository. Plan for CT abdomen and pelvis today. Objective Vital Signs Date Time Temp Pulse Resp B/P (MAP) Pulse Ox O2 Delivery O2 Flow Rate FiO2 11/24/24 10:51 98 11/24/24 05:00 97.9 16 150/79 (102) 97 Room Air Result Diagram: 11/24/248 11/24/24 045 Elderly male, alert and oriented x4, not in acute distress Head: Normocephalic, atraumatic Eyes: Pupils- 3mm, reacting to light, conjunctiva- anicteric Nose and throat: No polyps, septum- normal, no mucosal ulcers Neck: Supple, no lymphadenopathy, no carotid bruit Respiratory: No use of accessory muscles of respiration, Bilateral normal veiscular breath sounds heard. No wheeze, rhochi or creps Cardiac: S1-S2 heard, rhythm regular, no gallop/murmur Abdomen: non distended, mild lower abdominal tenderness, no organomegaly, bowel sounds - heard Genitourinary: Irrigation catheter in place Extremities: no clubbing, no pedal edema, no deformities, peripheral pulses - feeble Skin: warm and dry, no rash, no purpura Neuro: No focal deficit, gross cranial nerve exam - normal Coagulation Studies Laboratory Tests Test 11/20/24 08:28 Prothrombin Time 10.5 SECONDS (9.0-12.0) INR International Normalized Ratio 1.0 INR Coagulation Comments Plan Plan Hematuria Likely secondary to Mckeon's trauma History of bladder retention possibly secondary to concussion Follow up with CT abdomen and pelvis. Repeat clot evacuation done yesterday. Second dose of 1 g tranexamic acid given yesterday. Dr. Hawthorne is on board. On 11/20/2024, catheter changed from 20 Yemeni to 22 Yemeni in about 400 mL of clotted blood removed by Dr. Hawthorne. Held aspirin and Plavix. We will start aspirin 81 mg q.48h at discharge. Continue CBI and try to wean off. Significant drop in hemoglobin from 13.1 on 11/20/2024 to 7.9 today. Continue NS at 100 cc/hour and might require packed RBC transfusion if HGB drops to less than 7. Vitals stable. Started tamsulosin 0.4 mg p.o. HS. 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 He was evaluated by Dr. Padilla and was deferred surgery as he is high-risk. He was to follow up with Dr. Nunn outpatient for stenting. Hold aspirin and Plavix due to significant hematuria. Continue Lipitor 80 mg daily. Hypertension Continue home losartan 50 mg and atenolol 50 mg daily. History of gastritis, duodenitis and duodenal ulcers Continue pantoprazole 40 mg daily. Nicotine use disorder Nicotine patch 21 mg daily transdermal. Anxiety Depression No home medications. Continue to monitor. Code Status: Full code DVT Prophylaxis: SCDs Analgesia/Sedation: [place], morphine Lines/Tubes: PIV, Mckeon's catheter GI Prophylaxis: Protonix Nutrition: Heart healthy diet PT: Ordered Disposition: CT abdomen and pelvis, try to wean off CBI. Monitor H&H. Emilia Agudelo MD Internal Medicine Resident, PGY-1 Date of Service: Nov 24, 2024 Billing Provider: IRMA WEI MD Common Visit Codes: [id number] INP/OBS CARE(HIGH) EMILIA AGUDELO, RES Nov 24, 2024 12:25 IRMA WEI MD Nov 28, 2024 17:59
--- NOTE | 2024-11-24 12:58 | RADIOLOGY REPORT ---
Exam: CT CT ABDOMEN PELVIS W/ IV CONTRAST History: hematuria COMPARISON: None Technique: Multidetector spiral CT of the abdomen and pelvis was performed from lung bases to pubic s ymphysis. Intravenous contrast was administered during this examination. Portal venous imaging was obtained. Axial, coronal and sagittal multiplanar reformats were performed by the technologist on a separate workstation. Radiation Dose : 1. Abdomen/Pelvis: CTDIvol 13.4 mGy, DLP 752 mGy*cm. CONTRAST: Type of contrast: Omni 300 Contrast injected: 100 ml Findings: Lung Bases: No acute or significant lung base finding. Normal heart size. No pleural or pericardial effusion. Liver: The liver is normal in size. No focal lesions. Normal hepatic vascular enhancement. Gallbladder and Biliary Tree: Unremarkable Spleen: Unremarkable Pancreas: The pancreas is normal in appearance without focal lesions or abnormal enhancement. Adrenal Glands: Unremarkable Kidneys: No hydronephrosis. No nephrolithiasis. Bladder: Collapsed around a Mckeon catheter. Bowel: The stomach is grossly normal in appearance. Small bowel and colon are normal in caliber and d istribution. The appendix is not visualized; however, no secondary findings of acute appendicitis id entified. Ascites: Absent Lymphadenopathy: No mesenteric, retroperitoneal or periportal lymphadenopathy. Abdominal Wall and Mesentery: Unremarkable. Vasculature: The visualized abdominal aorta is normal in size and caliber. Abdominal and pelvic vess els demonstrate normal enhancement. Pelvic Organs: Prostatomegaly measuring up 6.4 cm in transverse dimension. Musculoskeletal: No aggressive focal bony lesions, acute fractures or dislocation. IMPRESSION: 1. No acute abdominal or pelvic finding. 2. Prostatomegaly Radiation optimization: All CT scans at this facility use at least one of these dose optimization [place] hniques: automated exposure control mA and/or kV adjustment per patient size (includes targeted exam s where dose is matched to clinical indication) or iterative reconstruction.
[2024-11-24] MEDS: potassium Cl 20 mEq SR tablet PO PRN (13:22)
[2024-11-24 17:00] VITALS: BP 138/92; PULSE 66; RESP 16; TEMP 98.1; O2SAT 98
[2024-11-24 20:00] VITALS: RESP 16; O2SAT 98
[2024-11-24] MEDS: K and/or MAG REPLACEMENT MC SCH (20:00)
--- NOTE | 2024-11-24 20:10 | PROGRESS NOTE ---
DATE: 11/24/2024 DICTATING PHYSICIAN: Carter Hawthorne MD SUBJECTIVE: Hospital day #4. 24-hour events. No catheter clogging. OBJECTIVE: GENITOURINARY: His CBI has been weaned off and his urine is a light pink in color without clots. LABORATORY DATA: His hematocrit is stable at 23%. CT scan is reviewed and shows what appears to be just an enlarged prostate with a well placed Mckeon catheter and no clots in his bladder. ASSESSMENT: Gross hematuria and clot retention, now improved following CBI. PLAN: Okay to keep CBI off. Probable discharge in a.m. with Mckeon catheter in place. We will follow up in the office to see me for a voiding trial and management of his catheter. Carter Hawthorne MD TID: [id number] RECEIPT: [id number] TOM/ROSEMARY
[2024-11-24 22:00] VITALS: BP 145/72; PULSE 73; RESP 16; TEMP 98.3; O2SAT 95
[2024-11-25 06:00] VITALS: BP 129/63; PULSE 55; RESP 18; TEMP 98.3; O2SAT 96
[2024-11-25 06:02] LABS: BASOPHILS # (AUTO) 0.1 X10'3 (0-0.2); BASOPHILS % (AUTO) 1.2 % (0-1); EOSINOPHILS # (AUTO) 0.3 X10'3 (0-0.9); HEMATOCRIT 23.4 % (42.0-52.0); HEMOGLOBIN 7.8 g/dl (14.0-17.9); LYMPHOCYTES % (AUTO) 22.2 % (21-51); MEAN CORPUSCULAR HEMOGLOBIN 29.3 PG (27.0-31.0); MEAN CORPUSCULAR HGB CONC 33.4 g/dL (33.0-36.5); MEAN CORPUSCULAR VOLUME 87.8 FL (78-98); MEAN PLATELET VOLUME 7.7 FL (7.4-10.4); MONOCYTES % (AUTO) 10.7 % (2-12); NEUTROPHILS # (AUTO) 5.6 X10'3 (1.8-7.7); NEUTROPHILS % (AUTO) 62.9 % (42-75); PLATELET COUNT 306 X10'3 (140-440); RED BLOOD COUNT 2.67 X10'6 (4.70-6.10); RED CELL DISTRIBUTION WIDTH 14.8 % (11.5-14.5); WHITE BLOOD COUNT 8.9 X10'3 (4.5-11.0)
[2024-11-25 06:23] LABS: ALANINE AMINOTRANSFERASE 21 U/L (12-78); ALBUMIN 2.6 G/DL (3.4-5.0); ALBUMIN/GLOBULIN RATIO 0.8 (1.1-1.5); ALKALINE PHOSPHATASE 71 IU/L (46-116); ANION GAP 4 (8-16); ASPARTATE AMINO TRANSFERASE 6 U/L (10-37); BILIRUBIN,TOTAL 0.4 MG/DL (0.1-1.0); BLOOD UREA NITROGEN 7 MG/DL (7-18); CALCIUM 8.1 MG/DL (8.5-10.1); CHLORIDE 108 MMOL/L (99-107); CREATININE 0.88 MG/DL (0.60-1.10); GLUCOSE 100 MG/DL (70-104); MAGNESIUM 1.8 MG/DL (1.5-2.4); POTASSIUM 4.3 MMOL/L (3.5-5.1); SODIUM 141 MMOL/L (135-145); TOTAL CARBON DIOXIDE 29.5 MMOL/L (24-32); TOTAL PROTEIN 5.7 G/DL (6.4-8.2); eCRCL 66 ML/MIN; eGFR 84 ML/MIN
[2024-11-25 08:00] VITALS: RESP 18; O2SAT 96
[2024-11-25] MEDS ORDERED: tranexamic acid inj. 1,000 MG in normal saline 100ml IV soln 90 ML IV ONE (12:15)
[2024-11-25] MEDS: tranexamic acid 1gm/0.7% sal. 100 ML IV ONE (15:43)
--- NOTE | 2024-11-25 16:45 | PROGRESS NOTE- Residence ---
Progress Note - Resident Providers to CC Resident Creating Document: EMILIA AGUDELO, RES ~ Antibiotic Timeout Antibiotic Ordered?: No Subjective The patient was seen and examined at bedside today. Dr. Hawthorne examined the patient yesterday. Continues bladder irrigation discontinued last night. The patient still has hematuria. Objective Vital Signs Date Time Temp Pulse Resp B/P (MAP) Pulse Ox O2 Delivery O2 Flow Rate FiO2 11/25/24 08:30 75 11/25/24 06:00 98.3 18 129/63 (85) 96 Room Air Result Diagram: 11/25/24 0534 11/25/24 0534 Elderly male, alert and oriented x4, not in acute distress Head: Normocephalic, atraumatic Eyes: Pupils- 3mm, reacting to light, conjunctiva- anicteric Nose and throat: No polyps, septum- normal, no mucosal ulcers Neck: Supple, no lymphadenopathy, no carotid bruit Respiratory: No use of accessory muscles of respiration, Bilateral normal veiscular breath sounds heard. No wheeze, rhochi or creps Cardiac: S1-S2 heard, rhythm regular, no gallop/murmur Abdomen: non distended, mild lower abdominal discomfort on palpation, no organomegaly, bowel sounds - heard Genitourinary: Irrigation catheter in place Extremities: no clubbing, no pedal edema, no deformities, peripheral pulses - feeble Skin: warm and dry, no rash, no purpura Neuro: No focal deficit, gross cranial nerve exam - normal Coagulation Studies Laboratory Tests Test 11/20/24 08:28 Prothrombin Time 10.5 SECONDS (9.0-12.0) INR International Normalized Ratio 1.0 INR Coagulation Comments Plan Plan Hematuria Likely secondary to Mckeon's trauma History of bladder retention possibly secondary to concussion Clot evacuation done 2 times during hospitalization. Third dose of 1 g tranexamic acid given today. Continuous bladder irrigation discontinued last night as per Dr. Hawthorne's recommendations. Patient still has hematuria. We will continue to monitor without CBI today. CT abdomen/pelvis showed prostatomegaly. Held aspirin and Plavix. We will start aspirin 81 mg q.48h at discharge. Significant drop in hemoglobin from 13.1 on 11/20/2024 to 7.8 today. On 11/20/2024, catheter changed from 20 Yoruba to 22 Yoruba in about 400 mL of clotted blood removed by Dr. Hawthorne. Continue NS at 100 cc/hour and might require packed RBC transfusion if HGB drops to less than 7. Vitals stable. Continue tamsulosin 0.4 mg p.o. HS. 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 He was evaluated by Dr. Padilla and was deferred surgery as he is high-risk. He was to follow up with Dr. Nunn outpatient for stenting. Hold aspirin and Plavix due to significant hematuria. Continue Lipitor 80 mg daily. Hypertension Continue home losartan 50 mg and atenolol 50 mg daily. History of gastritis, duodenitis and duodenal ulcers Continue pantoprazole 40 mg daily. Nicotine use disorder Nicotine patch 21 mg daily transdermal. Anxiety Depression No home medications. Continue to monitor. Code Status: Full code DVT Prophylaxis: SCDs Analgesia/Sedation: [place], morphine Lines/Tubes: PIV, Mckeon's catheter GI Prophylaxis: Protonix Nutrition: Heart healthy diet PT: Ordered Disposition: Anticipate discharge in the next 24-48 hours. Emilia Agudelo MD Internal Medicine Resident, PGY-1 Date of Service: Nov 25, 2024 Billing Provider: IRMA WEI MD Common Visit Codes: [id number] INP/OBS CARE(HIGH) EMILIA AGUDELO, RES Nov 25, 2024 16:45 IRMA WEI MD Nov 28, 2024 18:00
[2024-11-25 18:00] VITALS: BP 128/61; PULSE 58; RESP 16; TEMP 98.2; O2SAT 96
[2024-11-25 20:00] VITALS: RESP 16; O2SAT 96
[2024-11-25 22:00] VITALS: BP 127/73; PULSE 55; RESP 16; TEMP 98.2; O2SAT 97
[2024-11-26 06:00] VITALS: BP 122/84; PULSE 61; RESP 18; TEMP 98.3; O2SAT 97
[2024-11-26 08:38] LABS: BASOPHILS # (AUTO) 0.1 X10'3 (0-0.2); BASOPHILS % (AUTO) 0.9 % (0-1); EOSINOPHILS # (AUTO) 0.3 X10'3 (0-0.9); EOSINOPHILS % (AUTO) 3.6 % (0-6); HEMATOCRIT 25.3 % (42.0-52.0); HEMOGLOBIN 8.7 g/dl (14.0-17.9); LYMPHOCYTES # (AUTO) 1.5 X10'3 (1.1-4.8); LYMPHOCYTES % (AUTO) 17.4 % (21-51); MEAN CORPUSCULAR HGB CONC 34.4 g/dL (33.0-36.5); MEAN CORPUSCULAR VOLUME 87.3 FL (78-98); MEAN PLATELET VOLUME 7.5 FL (7.4-10.4); MONOCYTES # (AUTO) 0.7 X10'3 (0-0.9); MONOCYTES % (AUTO) 8.1 % (2-12); PLATELET COUNT 342 X10'3 (140-440); RED CELL DISTRIBUTION WIDTH 14.4 % (11.5-14.5); WHITE BLOOD COUNT 8.5 X10'3 (4.5-11.0)
[2024-11-26 08:51] LABS: ALANINE AMINOTRANSFERASE 16 U/L (12-78); ALBUMIN 2.9 G/DL (3.4-5.0); ALBUMIN/GLOBULIN RATIO 0.9 (1.1-1.5); ALKALINE PHOSPHATASE 80 IU/L (46-116); ANION GAP 6 (8-16); ASPARTATE AMINO TRANSFERASE 6 U/L (10-37); BILIRUBIN,TOTAL 0.5 MG/DL (0.1-1.0); BLOOD UREA NITROGEN 6 MG/DL (7-18); BUN/CREATININE RATIO 6.1 (10.0-20.0); CALCIUM 8.2 MG/DL (8.5-10.1); CHLORIDE 104 MMOL/L (99-107); CREATININE 0.99 MG/DL (0.60-1.10); GLUCOSE 156 MG/DL (70-104); POTASSIUM 3.6 MMOL/L (3.5-5.1); SODIUM 138 MMOL/L (135-145); TOTAL CARBON DIOXIDE 27.9 MMOL/L (24-32); TOTAL PROTEIN 6.3 G/DL (6.4-8.2); eCRCL 59 ML/MIN; eGFR 73 ML/MIN
[2024-11-26 09:31] VITALS: RESP 18; O2SAT 96
[2024-11-26 10:00] VITALS: BP 124/65; PULSE 60; RESP 18; TEMP 98.5; O2SAT 97
[2024-11-26] MEDS ORDERED: ASPI81TA53 PO (10:24)
--- NOTE | 2024-11-26 18:35 | DISCHARGE SUMMARY-Residence ---
Discharge Summary Providers to CC Resident Creating Document: GABBY AGUDELO, RES ~ Discharge Summary Admission Diagnosis: Hematuria Hospital Course DATE OF ADMISSION: 11/20/2024 DATE OF DISCHARGE: 11/26/2024 Imaging: CT abdomen/pelvis with IV contrast 11/24/2024: 1. No acute abdominal or pelvic finding. 2. Prostatomegaly. 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 Hawthorne Consultants: Dr. Hawthorne, urologist Complications: None Condition on DC: Stable Changed Medications: Aspirin (Children's Aspirin) 81 Mg Tab.chew 81 MG PO alternate day for 30 Days, #15 TAB.CHEW (Changed from: DAILY@0830; 30) Use aspirin every other day/alternate day Continued Medications: Atenolol (Atenolol) 50 Mg Tablet 1 TAB PO DAILY for 30 Days, #30 TAB 0 Refills Atorvastatin Calcium (Lipitor) 80 Mg Tablet 1 TAB PO DAILY for 30 Days, #30 TAB 0 Refills Losartan Potassium (Losartan Potassium) 50 Mg Tablet 1 TAB PO DAILY for 30 Days, #30 TAB 0 Refills Nicotine 14 MG Patch* (Habitrol 14 MG Patch*) 1 Each Patch.td24 1 PATCH TD DAILY for 30 Days, #30 PATCH Pantoprazole Sodium (Pantoprazole Sodium) 40 Mg Tablet.dr 40 MG PO BID for 30 Days, #60 TAB.SR [tamsulosin capsule] () 0.4 MG CAP 0.4 MG PO HS for 30 Days, #30 Discontinued Medications: Clopidogrel Bisulfate (Clopidogrel) 75 Mg Tablet 75 MG PO DAILY for 30 Days, #30 TAB Do not stop medication unless instructed by prescriber. Discharge Summary: The patient is a 79-year-old male who presented to the ED with complaint of hematuria. The patient was discharged the previous day after he was managed for near-syncope secondary to ICA stenosis and PAD. The patient sustained a concussion to his head after which he developed bladder retention. He got a F oley's catheter during the last admission and was discharged on Pino's catheter. The patient says that after going home, he spontaneously started leaking blood which is why he came back to the hospital. He complains of significant lower abdominal pain. On evaluation in the ED, the patient had significant hematuria. Urologist on-call, Dr. Hawthorne was consulted and he evaluated the patient. Continuous bladder irrigation was started and he was able to evacuate clots from his bladder. We have continued CBI overnight. Patient's pain was managed with morphine and [place]. His aspirin and Plavix were held. We tried starting aspirin after 24 hours but the patient developed hematuria again. Therefore held aspirin. On the day of discharge, the patient was stable and had no new complaints. He is being discharged home with home nursing. He was instructed to follow up with Dr. Hawthorne for the management of his Pino's catheter and urinary retention. Advice at discharge: Follow up with PCP in one week. Follow up with Dr. Hawthorne, urologist for the management of your pino's catheter. Discontinue plavix. Continue taking aspirin every other day. You have to follow up with Dr. Nunn, team assistant for the stent placement in your carotid artery. In the event of severe abdominal pain, clots in your urine, or increase in blood in your urine, loss of consciousness, call 911 or go to the ER immediately. Examination at discharge: Elderly male, alert and oriented x4, not in acute distress Head: Normocephalic, atraumatic Eyes: Pupils- 3mm, reacting to light, conjunctiva- anicteric Nose and throat: No polyps, septum- normal, no mucosal ulcers Neck: Supple, no lymphadenopathy, no carotid bruit Respiratory: No use of accessory muscles of respiration, Bilateral normal veiscular breath sounds heard. No wheeze, rhochi or creps Cardiac: S1-S2 heard, rhythm regular, no gallop/murmur Abdomen: non distended, mild lower abdominal discomfort on palpation, no organomegaly, bowel sounds - heard Genitourinary: Pino's catheter in place Extremities: no clubbing, no pedal edema, no deformities, peripheral pulses - feeble Skin: warm and dry, no rash, no purpura Neuro: No focal deficit, gross cranial nerve exam - normal Vital Signs Date Time Temp Pulse Resp B/P (MAP) Pulse Ox O2 Delivery O2 Flow Rate FiO2 11/26/24 10:00 98.5 60 18 124/65 (84) 97 Room Air Laboratory Tests Test 11/25/24 05:34 11/26/24 04:48 11/26/24 08:14 White Blood Count 8.9 X10'3 8.5 X10'3 Red Blood Count 2.67 X10'6 2.90 X10'6 Hemoglobin 7.8 g/dl 8.7 g/dl Hematocrit 23.4 % 25.3 % Mean Corpuscular Volume 87.8 FL 87.3 FL Mean Corpuscular Hemoglobin 29.3 PG 30.0 PG Mean Corpuscular Hemoglobin Concent 33.4 g/dL 34.4 g/dL Red Cell Distribution Width 14.8 % 14.4 % Platelet Count 306 X10'3 342 X10'3 Mean Platelet Volume 7.7 FL 7.5 FL Neutrophils (%) (Auto) 62.9 % 70.0 % Lymphocytes (%) (Auto) 22.2 % 17.4 % Monocytes (%) (Auto) 10.7 % 8.1 % Eosinophils (%) (Auto) 3.0 % 3.6 % Basophils (%) (Auto) 1.2 % 0.9 % Neutrophils # (Auto) 5.6 X10'3 6.0 X10'3 Lymphocytes # (Auto) 2.0 X10'3 1.5 X10'3 Monocytes # (Auto) 1.0 X10'3 0.7 X10'3 Eosinophils # (Auto) 0.3 X10'3 0.3 X10'3 Basophils # (Auto) 0.1 X10'3 0.1 X10'3 CBC Comment Sodium Level 141 MMOL/L 138 MMOL/L Potassium Level 4.3 MMOL/L 3.8 MMOL/L 3.6 MMOL/L Chloride Level 108 MMOL/L 104 MMOL/L Carbon Dioxide Level 29.5 MMOL/L 27.9 MMOL/L Anion Gap 4 6 Blood Urea Nitrogen 7 MG/DL 6 MG/DL Creatinine 0.88 MG/DL 0.99 MG/DL Estimated GFR/1.73 m2 84 ML/MIN 73 ML/MIN BUN/Creatinine Ratio 8.0 6.1 Glucose Level 100 MG/DL 156 MG/DL Calcium Level 8.1 MG/DL 8.2 MG/DL Magnesium Level 1.8 MG/DL Total Bilirubin 0.4 MG/DL 0.5 MG/DL Aspartate Amino Transf (AST/SGOT) 6 U/L 6 U/L Alanine Aminotransferase (ALT/SGPT) 21 U/L 16 U/L Alkaline Phosphatase 71 IU/L 80 IU/L Total Protein 5.7 G/DL 6.3 G/DL Albumin 2.6 G/DL 2.9 G/DL Globulin 3.1 G/DL 3.4 G/DL Albumin/Globulin Ratio 0.8 0.9 Chemistry Comments *Problems/Diagnosis: (1) Hematuria Status: Acute (2) Urinary retention (3) Carotid stenosis (4) BPH (benign prostatic hyperplasia) Status: Acute Total Time Spent on D/C: > 30 Minutes Counseling Services Smoking & Tobacco Cessation: > 10 Minutes Date of Service: Nov 26, 2024 Billing Provider: IRMA WEI MD Common Visit Codes: [id number] DISCH DAY >30min GABBY AGUDELO, RES Nov 26, 2024 18:16 IRMA WEI MD Nov 28, 2024 18:00
== END 2024-11-26 12:30 | disposition home health service (06) | DRG 699 ==
LOC: ER 07:54 → ED HOLD 14:42 → SUR 3N 23:45
PROVIDERS: ADMIT Family Medicine; ATTEND Family Medicine
PROC: 0T9B30Z Drainage of Bladder with Drainage Device, Percutaneous Approach (ICD-10-PCS; principal; 2024-11-20)
PROC: BW211ZZ Computerized Tomography (CT Scan) of Abdomen and Pelvis using Low Osmolar Contrast (ICD-10-PCS; 2024-11-24)
DX: T83.83XA Hemorrhage due to genitourinary prosthetic devices, implants and grafts, initial encounter (principal); R71.0 Precipitous drop in hematocrit; I65.21 Occlusion and stenosis of right carotid artery; I11.0 Hypertensive heart disease with heart failure; I50.9 Heart failure, unspecified; F41.9 Anxiety disorder, unspecified; F32.A Depression, unspecified; I73.9 Peripheral vascular disease, unspecified; Y83.8 Other surgical procedures as the cause of abnormal reaction of the patient, or of later complication, without mention of misadventure at the time of the procedure; Z79.82 Long term (current) use of aspirin; Y92.89 Other specified places as the place of occurrence of the external cause; Z79.01 Long term (current) use of anticoagulants; Z79.899 Other long term (current) drug therapy
CPT/HCPCS: 36415; 51700; 74177; 80053; 81001; 83735; 83880; 84132; 85025; 85027; 85610; 86885; 86900; 86901; 87081; 96374; 96376; 99285; A4314; A4346; A4358; A5200; A6258; C1758; G0378; J2270; J3490; J7030; Q9967

== ENCOUNTER 2024-11-27 14:55 | Emergency (ER) | payer OTHER, MEDICARE, MEDICAID ==
[~2024-11-27] VITALS: Ht 167.6 cm; Wt 69.0 kg
[~2024-11-27 14:55] MED LIST changes: -CLOP75TA34 PO
[2024-11-27 15:11] VITALS: TEMP 97.8
[2024-11-27 16:43] LABS: BASOPHILS # (AUTO) 0.1 X10'3 (0-0.2); EOSINOPHILS # (AUTO) 0.2 X10'3 (0-0.9); EOSINOPHILS % (AUTO) 2.1 % (0-6); HEMATOCRIT 22.7 % (42.0-52.0); HEMOGLOBIN 7.8 g/dl (14.0-17.9); LYMPHOCYTES # (AUTO) 1.8 X10'3 (1.1-4.8); LYMPHOCYTES % (AUTO) 17.8 % (21-51); MEAN CORPUSCULAR HEMOGLOBIN 29.8 PG (27.0-31.0); MEAN CORPUSCULAR HGB CONC 34.3 g/dL (33.0-36.5); MEAN CORPUSCULAR VOLUME 86.8 FL (78-98); MEAN PLATELET VOLUME 7.5 FL (7.4-10.4); MONOCYTES # (AUTO) 0.9 X10'3 (0-0.9); MONOCYTES % (AUTO) 8.8 % (2-12); NEUTROPHILS % (AUTO) 70.3 % (42-75); PLATELET COUNT 386 X10'3 (140-440); RED BLOOD COUNT 2.62 X10'6 (4.70-6.10); RED CELL DISTRIBUTION WIDTH 14.9 % (11.5-14.5); WHITE BLOOD COUNT 9.9 X10'3 (4.5-11.0)
[2024-11-27 16:50] LABS: ALBUMIN 2.9 G/DL (3.4-5.0); ANION GAP 8 (8-16); BLOOD UREA NITROGEN 16 MG/DL (7-18); BUN/CREATININE RATIO 11.8 (10.0-20.0); CALCIUM 8.1 MG/DL (8.5-10.1); CHLORIDE 105 MMOL/L (99-107); CREATININE 1.36 MG/DL (0.60-1.10); GLUCOSE 119 MG/DL (70-104); POTASSIUM 3.8 MMOL/L (3.5-5.1); SODIUM 140 MMOL/L (135-145); TOTAL CARBON DIOXIDE 27.1 MMOL/L (24-32); eCRCL 40 ML/MIN; eGFR 51 ML/MIN
[2024-11-27 16:54] LABS: INR 1.1 INR
[2024-11-27 17:59] VITALS: BP 194/87; PULSE 63; RESP 18; O2SAT 98
[2024-11-27] MEDS: morphine 4 MG/ML inj SYRINge IV ONE (18:04)
[2024-11-27] MEDS: ondansetron/PF 4mg/2ml inj IV ONE (18:04)
== END 2024-11-27 20:00 | disposition home or self-care (01) ==
LOC: ER 14:56
DX: R31.9 Hematuria, unspecified (principal); T83.9XXA Unspecified complication of genitourinary prosthetic device, implant and graft, initial encounter; I11.0 Hypertensive heart disease with heart failure; I50.9 Heart failure, unspecified; Z79.82 Long term (current) use of aspirin; Y92.89 Other specified places as the place of occurrence of the external cause
CPT/HCPCS: 36415; 80048; 85025; 85610; 96374; 96375; 99284; A4314; J2270; J2405; A4355; A4358; A5200

== ENCOUNTER 2024-11-28 03:54 | Emergency (ER) | payer OTHER, MEDICARE, MEDICAID ==
[~2024-11-28] VITALS: Ht 172.7 cm; Wt 80.0 kg
[2024-11-28 05:32] LABS: BASOPHILS # (AUTO) 0.1 X10'3 (0-0.2); BASOPHILS % (AUTO) 1.3 % (0-1); EOSINOPHILS # (AUTO) 0.3 X10'3 (0-0.9); HEMATOCRIT 24.4 % (42.0-52.0); HEMOGLOBIN 8.1 g/dl (14.0-17.9); LYMPHOCYTES # (AUTO) 1.4 X10'3 (1.1-4.8); MEAN CORPUSCULAR HEMOGLOBIN 29.1 PG (27.0-31.0); MEAN CORPUSCULAR HGB CONC 33.4 g/dL (33.0-36.5); MEAN CORPUSCULAR VOLUME 87.1 FL (78-98); MEAN PLATELET VOLUME 7.5 FL (7.4-10.4); MONOCYTES # (AUTO) 0.9 X10'3 (0-0.9); MONOCYTES % (AUTO) 9.1 % (2-12); NEUTROPHILS # (AUTO) 6.8 X10'3 (1.8-7.7); NEUTROPHILS % (AUTO) 71.6 % (42-75); PLATELET COUNT 424 X10'3 (140-440); RED CELL DISTRIBUTION WIDTH 14.6 % (11.5-14.5); WHITE BLOOD COUNT 9.5 X10'3 (4.5-11.0)
[2024-11-28 06:54] LABS: ANION GAP 9 (8-16); BLOOD UREA NITROGEN 19 MG/DL (7-18); BUN/CREATININE RATIO 15.1 (10.0-20.0); CHLORIDE 104 MMOL/L (99-107); CREATININE 1.26 MG/DL (0.60-1.10); GLUCOSE 96 MG/DL (70-104); POTASSIUM 3.6 MMOL/L (3.5-5.1); SODIUM 140 MMOL/L (135-145); TOTAL CARBON DIOXIDE 27.2 MMOL/L (24-32); eCRCL 46 ML/MIN; eGFR 55 ML/MIN
[2024-11-28] MEDS: ringers solution, lacted 1,000 ML IV ONE (07:15)
[2024-11-28 07:18] LABS: APTT 24 SECONDS (22-32); PROTHROMBIN TIME 10.6 SECONDS (9.0-12.0)
[2024-11-28 10:03] LABS: ALBUMIN 2.7 G/DL (3.4-5.0); ANION GAP 4 (8-16); BLOOD UREA NITROGEN 17 MG/DL (7-18); BUN/CREATININE RATIO 15.2 (10.0-20.0); CHLORIDE 106 MMOL/L (99-107); CREATININE 1.12 MG/DL (0.60-1.10); GLUCOSE 102 MG/DL (70-104); POTASSIUM 3.8 MMOL/L (3.5-5.1); SODIUM 140 MMOL/L (135-145); TOTAL CARBON DIOXIDE 29.6 MMOL/L (24-32); eCRCL 52 ML/MIN; eGFR 63 ML/MIN
[2024-11-29 06:27] VITALS: TEMP 97.8
[2024-11-29] MEDS ORDERED: LOSA-415 PO (06:40)
[2024-11-29] MEDS ORDERED: PANT-47 PO (06:41)
[2024-11-29] MEDS ORDERED: ATOR-429 PO (06:42)
[2024-11-29] MEDS ORDERED: atenolol 50mg tablet PO ONE (15:25)
[2024-11-29] MEDS ORDERED: phenazopyridine 100mg tablet PO ONE (15:30)
[2024-11-29 16:11] LABS: HEMATOCRIT 23.8 % (42.0-52.0); HEMOGLOBIN 7.9 g/dl (14.0-17.9); MEAN CORPUSCULAR HEMOGLOBIN 28.9 PG (27.0-31.0); MEAN CORPUSCULAR HGB CONC 33.2 g/dL (33.0-36.5); MEAN CORPUSCULAR VOLUME 86.8 FL (78-98); MEAN PLATELET VOLUME 7.2 FL (7.4-10.4); PLATELET COUNT 442 X10'3 (140-440); RED BLOOD COUNT 2.74 X10'6 (4.70-6.10); RED CELL DISTRIBUTION WIDTH 14.8 % (11.5-14.5); WHITE BLOOD COUNT 9.6 X10'3 (4.5-11.0)
[2024-11-29 16:47] VITALS: BP 151/76; PULSE 76; RESP 16; O2SAT 97
== END 2024-11-29 16:51 ==
LOC: ER 03:55
DX: R31.9 Hematuria, unspecified (principal); I11.0 Hypertensive heart disease with heart failure; I50.9 Heart failure, unspecified; F41.9 Anxiety disorder, unspecified; F12.90 Cannabis use, unspecified, uncomplicated; Z60.2 Problems related to living alone; Z79.899 Other long term (current) drug therapy
CPT/HCPCS: 36415; 80048; 85025; 85027; 85610; 85730; 86885; 86900; 86901; 96360; 99285; A4314; J7120